=== PATIENT | female | born 1980 | race Caucasian/White ===

== ENCOUNTER 2018-06-28 09:18 | Day surgery (SDC) | payer MEDICAID, SELFPAY ==
[2018-06-28 09:44] VITALS: PULSE 75; RESP 16; TEMP 36.3; O2SAT 99
--- NOTE | 2018-06-28 09:55 | HPE_ITS ---
Assessment and Plan (1) Right carpal tunnel syndrome: Current visit: Yes Status: Acute Plan: Educated patient on surgery covering surgical technique, recovery process, benefits and risks including but not limited to risk of infection, blood clot, damage to soft tissue/blood vessels/nerves in detail. After discussion patient gives verbal understanding of risks and elects to proceed with scheduling surgery. Patient had opportunity to have questions answered to her satisfaction. Patient will continue to be scheduled for right ECTR with Dr. Angel on 06/28/18. History of Present Illness Narrative: Ms. Echols is a 37-year-old right-hand dominant female who presents to clinic for pre-operative visit for right ECTR with Dr. Angel on 06/28/18. 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 Since she was seen in the office she has begun wearing the braces every night and for the majority of her activity especially driving. She began having additional symptoms with her third approximately 3 years when she developed bilateral hand discomfort with occasional numbness. Her symptoms improved following delivery. However, over the last 4 months she has had aggravated symptoms of bilateral finger numbness, tingling in all fingers but predominantly in her thumb, middle and ring fingers bilaterally. She also describes an occasional aching pain in her thumbs bilaterally. Patient reports she wears braces on a nightly basis but has continued to have numbness that wakes her up in the middle of night. Due to symptoms of numbness, tingling and aching discomfort patient has had difficulty opening jars, completing school work on her phone and occasionally drops objects. She describes feeling weak in her hands bilaterally. She reports her thumbs are constantly numb but her other fingers are aggravated with holding her ski poles, driving and at night. Pertinent Surgical Information Denies past medical history of: stroke, cardiac issues, angina, asthma, COPD, sleep apnea, renal issues, liver issues, hepatitis, gastrointestinal issues, ulcers, hyperlipidemia, bleeding disorders, seizures, migraines, diabetes, autoimmune disorders, thyroid issues Denies prior complications from surgery or anesthesia. Review of Systems Constitutional Denies fever(s), Denies frequent falls and Denies headache(s) Eyes Denies change in vision ENT Denies dizziness, Denies ear discharge, Denies headache(s), Denies epistaxis, Denies nasal discharge and Denies sore throat Cardiovascular Denies chest pain, Denies rapid heart rate, Denies irregular heart rhythm, Denies dyspnea, Denies dyspnea on exertion and Denies slow heart rate Respiratory Denies cough, Denies dyspnea, Denies dyspnea on exertion and Denies wheezing Gastrointestinal Denies abdominal pain, Denies melena, Denies hematochezia, Denies constipation, Denies diarrhea, Denies nausea and Denies vomiting Genitourinary Denies hematuria, Denies dysuria and Denies urinary urgency Musculoskeletal Reports as per HPI, Reports numbness and Reports tingling Neurologic Denies dizziness, Denies frequent falls, Denies headache(s), Reports numbness and Reports tingling Allergic/Immunologic Denies wheezing PFSH Medical History Attention deficit disorder (ADD) in adult (Chronic) Borderline hypertension (Chronic) Raynaud disease (Chronic) BMI 45.0-49.9, adult Right carpal tunnel syndrome (Chronic) Anxiety (Chronic) Depression (Chronic) Surgical History S/P foot surgery, right (Chronic) Tonsillectomy and adenoidectomy Pilonidal cyst (Chronic) Family History Mother Essential hypertension Hyperlipidemia Mental disorder Father Alcohol abuse Essential hypertension Heart disease Hyperlipidemia Myocardial infarction Stroke Brother Essential hypertension Brother Essential hypertension Social History Smoking/Tobacco Use Status: Former Tobacco Use Quit Date: 03/02/05 Alcohol Intake: current Alcohol Intake frequency: holidays/special occasions only Drug use: Never Details: alcohol: t-14 Do you feel safe at home: Yes Do you feel safe in your relationship?: Yes Meds Home Medications Medication Instructions Recorded Confirmed Type venlafaxine [Effexor XR] 75 mg PO DAILY #1 12/22/14 04/08/18 History norethindrone (contraceptive) 1 tab-cap PO DAILY #3 tab-cap 09/13/15 04/08/18 History [Nor-Q-D] cephalexin 500 mg PO QID #20 capsule 03/30/17 Rx lisdexamfetamine [Vyvanse] 30 mg PO BID 06/28/18 06/28/18 History nifedipine 30 mg PO DAILY 06/28/18 06/28/18 History Allergies Allergy/AdvReac Type Severity Reaction Status Date / Time No Known Allergies Allergy Unverified 06/28/18 09:33 Exam Const General: cooperative and no acute distress HENMT Head: normal to inspection and atraumatic Ears: external ears normal General nose exam: external nose normal and no nasal discharge Face and sinus: face symmetric Mouth: oral mucosae normal, lip normal, tongue normal and moist mucous membranes Teeth and gingiva: dentition normal Throat: posterior oropharynx normal Eyes General: appearance normal, both eyes and all related structures Neck Neck: trachea midline Resp Effort & Inspection: normal respiratory effort and able to speak in complete sentences Auscultation: clear to auscultation bilaterally, no rales, no rhonchi and no wheezes Cardio Heart Sounds: S1 normal, S2 normal and no murmurs Pulses: radial pulses present bilaterally Skin General skin exam: no rashes or lesions noted
[2018-06-28 10:00] VITALS: BP 120/87; PULSE 75; RESP 16; TEMP 36.3; O2SAT 99
[2018-06-28] MEDS: Lactated Ringers 1,000 ML 80 ML IV (10:15)
[2018-06-28] MEDS: ceFAZolin 2 GM/50 ML BAG IVPB (11:25)
--- NOTE | 2018-06-28 11:57 | PDOC.DSDIS_ITS ---
Discharge Plan Disposition Patient Disposition: HOME Condition: Good Discharge Details Reason For Visit: (R) ECTR Attending Provider: Derek Angel Primary Care Provider: Estephania Guzman Home Meds and New Rx's Prescriptions: New hydrocodone-acetaminophen 5-325 mg tablet 1 tab PO Q6H PRN (Reason: pain) Qty: 7 RF: 0 Continued venlafaxine [Effexor XR] 75 MG capsule,extended release 24hr 75 mg PO DAILY Qty: 1 RF: 0 norethindrone (contraceptive) [Nor-Q-D] 0.35 MG tablet 1 tab-cap PO DAILY Qty: 3 RF: 3 cephalexin 500 MG capsule 500 mg PO QID Qty: 20 RF: 0 Vyvanse 30 mg Capsule 30 mg PO BID RF: 0 nifedipine 30 mg Tablet Extended Release 30 mg PO DAILY RF: 0 Discharge Instructions Additional Instructions: Elevate R hand above heart level as much as possible overnite tonite. Wiggle fingers R hand 10 times/hour when awake to prevent swelling. Keep splint and dressings dry and in place for 48 hours. Remove splint and dressings after 48 hours and begin to move R wrist. Use R hand as much as your discomfort allows. After removing dressings, may shower or bathe and get incision wet. Leave incision uncovered when it is dry and sealed. Follow up with in 2 weeks. Take tylenol or ibuprofen for mild pain. Use hydrocodone for breakthru pain, if needed. Your fingers may stay numb for 24 hours due to nerve block I put in to decrease post-op pain. Referrals: Derek Angel MD [ [facility] STAFF PHYSICIAN] - (f/u in 2 weeks.) Equipment/Supplies: Splint Activity:: Activity as Tolerated Remove Dressings/Wound Care:: 48 hours Shower/Bathe:: 48 hours Diet:: As Tolerated Discharge Orders Discharge Orders: Discharge Order (Routine); Ordered 06/28/18 Ordered By: Derek Angel DS: Diagnosis Discharge Diagnosis (1) Right carpal tunnel syndrome: Status: Chronic (2) Bilateral carpal tunnel syndrome: Status: Acute
[2018-06-28 12:30] VITALS: BP 140/86; PULSE 71; RESP 16; TEMP 35.5; O2SAT 100
--- NOTE | 2018-06-28 16:07 | ROE_ITS ---
DATE OF PROCEDURE: June 28, 2018 PREOPERATIVE DIAGNOSIS: Carpal tunnel syndrome, right. POSTOPERATIVE DIAGNOSIS: Same. PROCEDURE: Endoscopic carpal tunnel release on the right. ANESTHESIA: IV regional. SURGEON: Derek Angel M.D. INDICATIONS: This is a 37-year-old white female with, she reports, a 20-year history of some bilater al wrist discomfort, aggravated by certain activities. Over approximately 3 years ago she developed bilateral hand discomfort with occasional numbness during her . Her symptoms improved follo wing delivery until 4 months ago. Over the last 4 months she's had bilateral finger numbness, mostly in the thumb, middle and ring fingers bilaterally. Both sides are equally severe, but she is right- handed so it affects her more. Despite wearing night splints her symptoms have continued and she is awakened in the middle of the night periodically. She has difficulty opening jars, completing school work, on her phone and drops objects. Clinical exam was classic for carpal tunnel syndrome tracieatera lly. Bilateral carpal tunnel releases have been recommended. The patient wished to have them done one at a time, starting with the right side. The risks and complications of the procedure have been explained to the patient in detail preoperatively. PROCEDURE: The patient was taken to the Operating Room on 06/28/18. She was placed supine on the ope rating table and an IV regional anesthetic was administered to the right upper extremity. Once good anesthesia was obtained, the right hand, wrist and forearm were prepped and draped free in the usual sterile fashion. An incision was made in line with the proximal flexion crease of the wrist, beginning at the flexor c arpi radialis tendon and extending to the flexor carpi ulnaris tendon. The incision was carried down to the fascia. Subcutaneous veins were cauterized. The palmaris longus was retracted radially and then a distally-based fascial flap was developed to gain access to the carpal canal. A synovial refl lor was then used to free up any soft tissue attachments to the undersurface of the volar carpal li gament. A series of obturators were inserted to make room for the endoscope. The Jyotsna endoscope osiel de device was then inserted into the carpal canal. It was inserted until the distal edge of the vola r carpal ligament was clearly seen. At this point the trigger was depressed, elevating the blade, an d the elevated blade was brought out from distal to proximal out through the incision. The blade was lowered; the endoscope was then placed back in the carpal canal. I could see that the volar carpal ligament was completely transected and the median nerve was falling into the defect caused by the tra nsection. The endoscope was then removed from the carpal canal. Using Littler scissors a fasciotomy was performed subcutaneously for about two inches proximal to the incision. The wound was irrigated with saline solution. The wound margins were infiltrated with 0.5% Marcaine with an epinephrine indio ution and the skin edges were approximated with two horizontal mattress sutures of #4-0 Nylon suture material. The wound was dressed with Xeroform gauze, sterile gauze 4x4's, wrapped with a Kerlix band age, followed by an Davion bandage. She was placed in a commercial cockup wrist splint. The patient's IV regional anesthesia was reversed without complication and she was discharged to the recovery room in good condition. The patient was discharged home from the Day Surgery Unit when fully recovered from her IV regional a nesthesia. She was given instructions to elevate her right hand above heart level as much as possibl e overnight tonight. She is encouraged to wiggle her fingers ten times an hour when awake to prevent swelling and pain. She is to keep the dressings and splint intact and dry for 48 hours. After 48 h ours she can remove her dressings, shower or bathe and get her incision wet. She can leave the incis ion uncovered when it is dry and sealed. She is encouraged to use her right hand as much as discomfo rt allows. She is advised that her fingers may stay numb for up to 24 hours due to the nerve block I put in to decrease postop pain. She should follow-up in my office in 2 weeks. She will take Tyleno l or ibuprofen for mild pain. She is given a prescription for Hydrocodone with APAP 5/325 one tablet every six hours, if needed, for breakthrough pain.
== END 2018-06-28 13:05 | disposition home or self-care (01) ==
PROVIDERS: PCP Physician Assistant Medical; Visit Provider Orthopaedic Surgery
PROC: 01N54ZZ Release Median Nerve, Percutaneous Endoscopic Approach (ICD-10-PCS; CPT 29848; principal; 2018-06-28 10:00)
DX: G56.01 Carpal tunnel syndrome, right upper limb (principal)
CPT/HCPCS: 29848; NC; J0690; J2250; L3908

== ENCOUNTER 2019-02-04 10:04 | Emergency (ER) | payer MEDICAID, SELFPAY ==
[2019-02-04 10:21] VITALS: BP 150/97; PULSE 90; RESP 18; TEMP 37; O2SAT 98
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
[2019-02-04 11:27] VITALS: RESP 16
== END 2019-02-04 11:30 | disposition home or self-care (01) ==
PROVIDERS: Emergency Provider Physician Assistant; PCP Physician Assistant Medical
DX: F41.9 Anxiety disorder, unspecified (principal); Z63.79 Other stressful life events affecting family and household; I10 Essential (primary) hypertension
CPT/HCPCS: 99283

== ENCOUNTER 2019-06-07 13:21 | Outpatient (REF) | payer MEDICAID, SELFPAY ==
[2019-06-07 19:13] LABS: Anion Gap 12.4 mmol/L (3-11); BUN 17 mg/dL (7-18); CO2 23.6 mmol/L (21.0-32.0); CREATININE 0.66 mg/dL (0.55-1.02); Chloride 101 mmol/L (98-107); Glucose 103 mg/dL (74-106); Potassium 4.6 mmol/L (3.5-5.1); Sodium 137 mmol/L (136-145)
[2019-06-07 19:20] LABS: Hemoglobin A1C 5.5 % (3.8-5.6)
== END 2019-06-07 13:41 ==
LOC: NCHCN 13:21
PROVIDERS: PCP Physician Assistant Medical; Visit Provider Physician Assistant Medical
DX: I73.00 Raynaud's syndrome without gangrene (principal); R03.0 Elevated blood-pressure reading, without diagnosis of hypertension; Z86.32 Personal history of gestational diabetes
CPT/HCPCS: 80048; 83036

== ENCOUNTER 2020-10-01 01:19 | Outpatient (CLI) | payer MEDICAID, SELFPAY ==
--- NOTE | 2020-10-01 16:22 | DI.MAMMO_ITS ---
Exam(s) MAMMO SCREENING EXAM: MAMMO SCREENING CLINICAL HISTORY: SCREENING, BASELINE, HEALTH MAINTENANCE EXAM,Z00.8. TECHNIQUE: Bilateral full field digital CC and MLO mammographic images were obtained with 3D tomosyn thesis and utilizing computer aided detection (CAD). COMPARISON: None. This is a baseline mammogram on this 40-year-old patient who has a significant fa thea history, including her father was apparently diagnosed with breast cancer at age 64. FINDINGS: Towards the lateral aspect of the right breast there is benign-appearing small nodule which has appea jana of a benign intramammary lymph node, best seen on the CC view. There are no spiculated masses nor malignant appearing microcalcification groups. There is no significant architectural distortion nor skin thickening-retraction. IMPRESSION: Benign findings. No radiographic evidence of malignancy BI-RADS Category 2 - Benign Findings Breast Density - Category B - Scattered areas of fibroglandular density Breast density Category C or D implies that the patient has dense breast tissue. Dense breast tissue can make it harder to find cancer on a mammogram. Dense breast tissue is also associated with an incr eased risk of breast cancer. This information about the result of the mammogram report was provided to the patient to raise their awareness. Use this report when you speak with the patient about their risks for breast cancer, which includes their family history. At that time, you may recommend additional screening tests (Ultrasoun d or MRI) as these tests may add significant information. A negative radiographic report should not delay biopsy if a dominant or clinically suspicious mass is present. Up to ten percent of cancers are not identified on mammography. A negative report may reinforce clinical impression. Adenosis and dense breasts may obscure an underlying neoplasm. False positive reports average 6 to 10%. Patient will receive a letter notifying them of these results.
== END 2020-10-01 01:39 ==
PROVIDERS: PCP Physician Assistant Medical; Visit Provider Physician Assistant Medical
DX: Z12.31 Encounter for screening mammogram for malignant neoplasm of breast (principal); Z80.3 Family history of malignant neoplasm of breast
CPT/HCPCS: 77063; 77067

== ENCOUNTER 2020-11-13 14:53 | Outpatient (REF) | payer MEDICAID, SELFPAY ==
--- NOTE | 2020-11-13 12:15 | PAPFT_PTH ---
PATIENT: Yadira Echols LOC: [facility]#:[id number] AGE/SX: 40/F ROOM: RE11/13/[address]: Estephania Guzman : 1980 BED: DIS: 11/13/2020 SPEC #: [id number] RECD: 11/14/20 12:54 STATUS: DAVI RERyan #: [id number] KEYUR: 11/13/20 12:[address]: Estephania Guzman DEPT: [facility] Cytology RECD BY: Xi Felipe Tissues: 1 - CX/ENDOCX FOR PAP SMEARS Procedures: PAP THIN PREP/UVM Screening HPV DNA PROBE Comments: [id number]
[2020-11-13 19:35] LABS: ALT 23 U/L (14-59); AST 14 U/L (15-37); Albumin 3.7 g/dL (3.4-5.0); Alkaline Phosphatase 83 U/L (46-116); Anion Gap 10.9 mmol/L (3-11); BUN 17 mg/dL (7-18); Bilirubin, Total 0.3 mg/dL (0.2-1.0); CO2 24.1 mmol/L (21.0-32.0); CREATININE 0.7 mg/dL (0.55-1.02); Calcium 8.9 mg/dL (8.5-10.1); Calculated LDL 153 mg/dL (<100); Chloride 105 mmol/L (98-107); Cholesterol 252 mg/dL (<200); Glucose 90 mg/dL (74-106); HDL Cholesterol 70 mg/dL (40-60); Potassium 4.5 mmol/L (3.5-5.1); Sodium 140 mmol/L (136-145); Total Protein 7.2 g/dL (6.4-8.2); Triglyceride 149 mg/dL (<150)
== END 2020-11-13 14:54 | disposition home or self-care (01) ==
LOC: NCHCN 14:53
PROVIDERS: PCP Physician Assistant Medical; Referring Provider Physician Assistant Medical; Visit Provider Physician Assistant Medical
DX: Z12.4 Encounter for screening for malignant neoplasm of cervix (principal); Z01.419 Encounter for gynecological examination (general) (routine) without abnormal findings; Z00.8 Encounter for other general examination; Z11.51 Encounter for screening for human papillomavirus (HPV)
CPT/HCPCS: 80053; 80061; 88142; 87624

== ENCOUNTER 2022-06-03 16:07 | Outpatient (REF) | payer MEDICAID, SELFPAY ==
[2022-06-03 17:54] LABS: ALT 26 U/L (14-59); AST 14 U/L (15-37); Albumin 3.9 g/dL (3.4-5.0); Alkaline Phosphatase 85 U/L (46-116); Anion Gap 10.2 mmol/L (3-11); BUN 23 mg/dL (7-18); Bilirubin, Total 0.3 mg/dL (0.2-1.0); CO2 26.8 mmol/L (21.0-32.0); CREATININE 0.7 mg/dL (0.55-1.02); Calculated LDL 132 mg/dL (<100); Chloride 107 mmol/L (98-107); Cholesterol 208 mg/dL (<200); Estimated GFR 111.36 (mL/min/1.73m2); Glucose 104 mg/dL (74-106); HDL Cholesterol 67 mg/dL (40-60); Potassium 4.7 mmol/L (3.5-5.1); Sodium 144 mmol/L (136-145); Total Protein 7.5 g/dL (6.4-8.2); Triglyceride 49 mg/dL (<150)
== END 2022-06-03 16:08 | disposition home or self-care (01) ==
LOC: NCHCN 16:07
PROVIDERS: PCP Physician Assistant Medical; Visit Provider Physician Assistant Medical
DX: R03.0 Elevated blood-pressure reading, without diagnosis of hypertension (principal); R79.89 Other specified abnormal findings of blood chemistry; I73.00 Raynaud's syndrome without gangrene
CPT/HCPCS: 80053; 80061

== ENCOUNTER 2022-11-10 22:22 | Emergency (ER) | payer MEDICAID, SELFPAY ==
[2022-11-10 22:29] VITALS: BP 146/91; PULSE 87; RESP 18; TEMP 37.2; O2SAT 98
[2022-11-10] MEDS: Clindamycin 150 MG CAP, 12 CAPS/BTL 450 MG PO (22:52)
--- NOTE | 2022-11-10 22:54 | ED.GENADUL_ITS ---
Discharge Plan Disposition Patient Disposition: Home Discharge Details Clinical Impression: Pain, dental Primary Care Provider: Estephania Guzman ED Provider: Xi Graff Home Meds and New Rx's Prescriptions: New clindamycin HCl 150 mg capsule 450 mg PO TID Qty: 81 0RF Continued venlafaxine [Effexor XR] 75 MG capsule,extended release 24hr 75 mg PO DAILY Qty: 1 Mirena 20 mcg/24 hours (7 yrs) 52 mg intrauterine device 1 insert intrauterine ONCE Rx Instructions: as a single dose lisdexamfetamine 20 mg capsule 20 mg PO DAILY NAC 600 mg tablet 600 mg PO BID Patient Comments: STATES SHE ONLY TAKES THIS DAILY BECAUSE SHE FORGETS SECOND DOSE lorazepam [Ativan] 0.5 mg tablet 0.5 mg PO DAILY PRN Vyvanse 30 mg Capsule 30 mg PO BID nifedipine 30 mg Tablet Extended Release 30 mg PO DAILY Discharge Instructions Instructions: Toothache (ED) Additional Instructions: Take antibiotics as prescribed Yogurt daily while on antibiotic Ibuprofen and Tylenol as needed for pain Please review list of dentists Referrals: Estephania Guzman PA [Primary Care Provider] - Discharge Data Discharge Date/Time-TO BE ENTERED AT DEPARTURE: 11/10/22 22:59 Medical Decision Making This 42-year-old female presents with report of dental pain, fracture noted to#32, dycal applied to fx for comfort no evidence of ludwigs or deep space infection, oropharynx patent return precautions reviewed and pt expressed understanding placed on clindamycin HPI General Date/Time Provider Initiated Documentation: 11/10/22 22:24 . HPI Narrative: This 42-year-old female presents with right lower dental pain for the past nadir ral days. States that she had a cavity that failed to. States the pain is gradually becoming worse, unable to get into her dentist secondary Medicaid status. Denies any fever or chills. Denies any drainage. Denies any chance of . Related Data Home Medications Medication Instructions Recorded Confirmed venlafaxine 75 mg capsule,extended 75 mg PO DAILY ##1 12/22/14 08/20/21 release 24 hr (Effexor XR) lisdexamfetamine 30 mg capsule 30 mg PO BID 06/28/18 08/20/21 (Vyvanse) nifedipine 30 mg tablet,extended 30 mg PO DAILY 06/28/18 08/20/21 release levonorgestrel 21 mcg/24 hours (8 1 insert intrauterine ONCE 05/08/21 08/20/21 yrs) 52 mg intrauterine device (Mirena) lisdexamfetamine 20 mg capsule 20 mg PO DAILY 05/08/21 08/20/21 acetylcysteine 600 mg tablet (NAC) 600 mg PO BID 07/30/21 08/20/21 lorazepam 0.5 mg tablet (Ativan) 0.5 mg PO DAILY PRN 08/27/21 clindamycin HCl 150 mg capsule 450 mg PO TID #81 caps 11/10/22 Previous Rx's Medication Instructions Recorded clindamycin HCl 150 mg capsule 450 mg PO TID #81 caps 11/10/22 Allergies Allergy/AdvReac Type Severity Reaction Status Date / Time No Known Allergies Allergy Unverified 08/19/21 14:06 General Stated Complaint: DentalOral ANGELLA: 4 PFSH All Active Problems Lipoma (Acute) Tobacco use (Acute) Medical History (Updated 11/11/22 @ 00:07 by STEVE MAGAÑA) Anxiety Reports well controlled on venlafaxine Attention deficit disorder (ADD) in adult Bilateral carpal tunnel syndrome Binge eating disorder Borderline hypertension Chronic hypertension during , antepartum (06/01/15) Depression Reports well controlled on venlafaxine Dysuria Encounter for IUD insertion Encounter for supervision of normal in multigravida (12/27/14) Family history of breast cancer Gestational diabetes mellitus (GDM) treated with oral hypoglycemic therapy (06/26/15) 06/08/15 Glucophage 500mg @ bedtime 06/19/15 Glucophage increased to 1000mg @ bedtime 06/26/15 Glucophage increased to 1500mg at bedtime. 07/06/15 Glucophage increased to 2000mg at bedtime. Hypertension Left carpal tunnel syndrome Numbness and tingling in both hands (06/22/15) Obesity affecting in third trimester (06/01/15) BMI 46. PTSD (post-traumatic stress disorder) Raynaud disease Right carpal tunnel syndrome Surgical History (Updated 05/08/21 @ 10:55 by Richar Perez RN) History of carpal tunnel surgery of right wrist Pilonidal cyst S/P foot surgery, right skin removal Tonsillectomy and adenoidectomy Family History (Updated 11/21/20 @ 09:21 by Fabiana Panda MD) Mother Essential hypertension 30 Hyperlipidemia Mental disorder Father Alcohol abuse Essential hypertension 30 Heart disease Hyperlipidemia 33 Myocardial infarction Stroke Breast cancer Brother Essential hypertension 30 Brother Essential hypertension 30 Paternal Grandmother Breast cancer Social History (Updated 11/21/20 @ 09:24 by Fabiana Panda MD) Smoking/Tobacco Use Status: Former Tobacco Use Quit Date: 03/02/05 Smoking risk assessment performed?: Yes Alcohol Intake: current Alcohol Intake frequency: holidays/special occasions only Drug use: Occasionally Substance use type: marijuana Household members: significant other and children Number of Children: 3 Pets and animals: Yes Pets and animals: cat(s) and dog(s) Sexually active: Yes What type of physical activity do you participate in: walking Special yulisa needs: No Do you feel safe at home: Yes Do you feel safe in your relationship?: Yes Victim of physical abuse: No Victim of emotional abuse: No Victim of sexual abuse: No Female Reproductive History Menstrual Age of Menarche: 16 control method: progestin IUCD History History 3 Para 3 Hx # Term Pregnancies 2 Multiple births Hx # Pregnancies 1 Ectopic pregnancies AB induced Hx Number of Living Children 3 AB spontaneous Past Pregnancies Del. Date GA/Weeks # Preg Succ Route Wgt Sex Labor Lgth Anesth esia Location [facility] 08/01/06 vaginal 2267.962 g Male [facility] 12/15/09 vaginal 2267.962 g Male [facility] 07/20/15 vaginal 3855.535 g Female [facility] Course Vital Signs Vital signs: Vital Signs Temperature 37.2 C 11/10/22 22:29 Pulse 87 11/10/22 22:29 Respiratory Rate 18 11/10/22 22:29 Blood Pressure 146/91 H 11/10/22 22:29 Pulse Oximetry 98 11/10/22 22:29 Temperature 37.2 C 11/10/22 22:29 Temperature Source Oral 11/10/22 22:29 Pulse 87 11/10/22 22:29 Respiratory Rate 18 11/10/22 22:29 Respiratory Effort Normal 11/10/22 22:32 Blood Pressure 146/91 H 11/10/22 22:29 Blood Pressure Position Sitting 11/10/22 22:29 Pulse Oximetry 98 11/10/22 22:29 Oxygen Delivery Method Room Air 11/10/22 22:29 Oxygen Flow Rate 0 11/10/22 22:29 Pain Level 2 11/10/22 22:29
== END 2022-11-10 22:59 | disposition home or self-care (01) ==
LOC: ER 11-11 02:10
PROVIDERS: Emergency Provider Physician Assistant; PCP Physician Assistant Medical
DX: K08.89 Other specified disorders of teeth and supporting structures (principal)
CPT/HCPCS: 99283; 99284

== ENCOUNTER 2023-09-25 08:29 | Emergency (ER) | payer MEDICAID, SELFPAY ==
[2023-09-25 08:30] VITALS: BP 173/109; PULSE 99; RESP 17; TEMP 36.7; O2SAT 100
[2023-09-25 08:36] VITALS: BP 173/109; PULSE 99; RESP 17; TEMP 36.7; O2SAT 100
--- NOTE | 2023-09-25 08:47 | ED.GENADUL_ITS ---
Discharge Plan Disposition Patient Disposition: Home Discharge Details Clinical Impression: Abscess, dental, Elevated blood pressure reading Primary Care Provider: Estephania Guzman ED Provider: Ernst Polo Home Meds and New Rx's Prescriptions: New amoxicillin-pot clavulanate 875-125 mg tablet 1 tab PO Q12H 7 Days Qty: 14 0RF Continued venlafaxine [Effexor XR] 75 MG capsule,extended release 24hr 75 mg PO DAILY Qty: 1 Mirena 20 mcg/24 hours (7 yrs) 52 mg intrauterine device 1 insert intrauterine ONCE Rx Instructions: as a single dose lisdexamfetamine 20 mg capsule 20 mg PO DAILY NAC 600 mg tablet 600 mg PO BID Patient Comments: STATES SHE ONLY TAKES THIS DAILY BECAUSE SHE FORGETS SECOND DOSE lorazepam [Ativan] 0.5 mg tablet 0.5 mg PO DAILY PRN lisdexamfetamine [Vyvanse] 30 mg Capsule 30 mg PO BID nifedipine 30 mg Tablet Extended Release 30 mg PO DAILY Discharge Instructions Instructions: Dental Pain ED, High Blood Pressure ED, Tooth Abscess ED Additional Instructions: Please take antibiotics as prescribed and complete the full course of medication. Is very important that you follow-up with a dentist for definitive care of your tooth infection. For pain control please continue to take the Tylenol and ibuprofen It was also noted today that your blood pressure was elevated. Please follow-up with your primary care provider for recheck of your blood pressure and any adjustments to medications or new medications if needed. Referrals: [facility] [Provider Group] - 1 week Estephania Guzman PA [Primary Care Provider] - (As needed for repeat check of blood pressure) [facility] General Mode of arrival: ambulatory . Date/Time Provider Initiated Documentation: 09/25/23 08:31 . Limitations to Documentation: no limitations . Information obtained by: patient . History of Present Illness 43 year old F presents to the emergency department with the chief complaint of Dental pain/facial swelling, described as severe, Quality is described as sharp, and is localized to the mouth. Patient started experiencing this day(s) (2) and it has been constant. No relieving factors improve symptom(s), Patient notes no other symptoms.. Patient did receive the following treatments prior to arrival, NSAID Related Data Home Medications ?Medication ?Instructions ?Recorded ?Confirmed venlafaxine 75 mg capsule,extended 75 mg PO DAILY ##1 12/22/14 09/25/23 release 24 hr (Effexor XR) lisdexamfetamine 30 mg capsule 30 mg PO BID 06/28/18 09/25/23 (Vyvanse) nifedipine 30 mg tablet,extended 30 mg PO DAILY 06/28/18 09/25/23 release levonorgestrel 21 mcg/24 hr (up to 1 insert intrauterine ONCE 05/08/21 09/25/23 8 years) 52 mg intrauterine device (Mirena) lisdexamfetamine 20 mg capsule 20 mg PO DAILY 05/08/21 09/25/23 acetylcysteine 600 mg tablet (NAC) 600 mg PO BID 07/30/21 09/25/23 lorazepam 0.5 mg tablet (Ativan) 0.5 mg PO DAILY PRN 08/27/21 09/25/23 amoxicillin 875 mg-potassium 1 tab PO Q12H 7 days #14 tabs 09/25/23 clavulanate 125 mg tablet Previous Rx's ?Medication ?Instructions ?Recorded amoxicillin 875 mg-potassium 1 tab PO Q12H 7 days #14 tabs 09/25/23 clavulanate 125 mg tablet Allergies Allergy/AdvReac Type Severity Reaction Status Date / Time clindamycin AdvReac Severe Itching Verified 09/25/23 08:37 General Stated Complaint: DentalOral ANGELLA: 4 Review of Systems Constitutional Constitutional: Denies chills and Denies fever(s) ENT Ears, Nose, Mouth, and Throat: Reports as per HPI, Denies change in voice, Reports dental pain, Denies throat swelling and Denies tongue swelling Respiratory Respiratory: Denies stridor and Denies wheezing Integumentary/Breasts Skin/Breast: Denies rash Allergic/Immunologic Allergic/Immunologic: Denies throat swelling, Denies tongue swelling and Denies wheezing Exam Const General: cooperative Orientation: alert, awake and oriented x3 Limitations: mental status not altered [facility] Head: normal to inspection, normocephalic and atraumatic Ears: hearing grossly normal bilaterally, normal mastoids bilaterally and no periauricular adenopathy General nose exam: external nose normal Face and sinus: tenderness on the right mandible Face images: 2 1. Area of facial swelling Mouth: oropharynx normal, no drooling, no muffled voice and normal tongue Teeth and gingiva: caries and other (Partially fractured tooth #31) Throat: posterior oropharynx normal, tonsils normal and uvula midline Eyes General: appearance normal, both eyes and all related structures Pupils: PERRL Neck Neck: normal visual inspection, full ROM, no lymphadenopathy, no meningeal signs, trachea midline, supple, no anterior neck swelling and no midline deformity Resp Effort & Inspection: normal respiratory effort and able to speak in complete sentences Course Vital Signs Vital signs: Vital Signs Temperature 36.7 C 09/25/23 08:30 Pulse 99 H 09/25/23 08:30 Respiratory Rate 17 09/25/23 08:30 Blood Pressure 173/109 H 09/25/23 08:30 Pulse Oximetry 100 09/25/23 08:30 Temperature 36.7 C 09/25/23 08:36 Temperature Source Temporal Artery Scan 09/25/23 08:36 Pulse 99 H 09/25/23 08:36 Respiratory Rate 17 09/25/23 08:36 Respiratory Effort Normal 09/25/23 08:35 Blood Pressure 173/109 H 09/25/23 08:36 Blood Pressure Position Sitting 09/25/23 08:36 Pulse Oximetry 100 09/25/23 08:36 Oxygen Delivery Method Room Air 09/25/23 08:36 Oxygen Flow Rate 0 09/25/23 08:36 Pain Level 8 09/25/23 08:40 Medical Decision Making Exam consistent with early dental abscess. no signs of deep neck space infection ( Retropharyngeal abscess, Navneet's angina, Parapharyngeal space infection, Peritonsillar Abscess ([employer])) or Epiglottitis. Pt non toxic and stable. No fluctuant palpable abscess noted so do not feel that I&D would be beneficial at this time but will start patient on Augmentin and encourage patient to follow-up with local dental provider preferably within the next 7 days. After discussion of diagnosis and plan of care patient has no further needs, questions, or concerns and states clear understanding to return to the emergency department for any worsening symptoms. This documentation was generated using [email or web address] system, please disregard any oddities of phrase or misspellings. Quality:SDOH Health Related Social Needs: 2 No Data to Display PFSH All Active Problems Elevated blood pressure reading (Acute) Abscess, dental (Acute) Lipoma (Acute) Tobacco use (Acute) Medical History (Updated 09/25/23 @ 08:48 by Ernst Polo NP) Hypertension Binge eating disorder Family history of breast cancer Dysuria Left carpal tunnel syndrome PTSD (post-traumatic stress disorder) Encounter for IUD insertion Anxiety Reports well controlled on venlafaxine Depression Reports well controlled on venlafaxine Attention deficit disorder (ADD) in adult Borderline hypertension Raynaud disease Right carpal tunnel syndrome Bilateral carpal tunnel syndrome Chronic hypertension during , antepartum (06/01/15) Encounter for supervision of normal in multigravida (12/27/14) Gestational diabetes mellitus (GDM) treated with oral hypoglycemic therapy (06/26/15) 06/08/15 Glucophage 500mg @ bedtime 06/19/15 Glucophage increased to 1000mg @ bedtime 06/26/15 Glucophage increased to 1500mg at bedtime. 07/06/15 Glucophage increased to 2000mg at bedtime. Numbness and tingling in both hands (06/22/15) Obesity affecting in third trimester (06/01/15) BMI 46. Surgical History (Updated 05/08/21 @ 10:55 by Richar Perez RN) History of carpal tunnel surgery of right wrist S/P foot surgery, right skin removal Pilonidal cyst Tonsillectomy and adenoidectomy Family History (Updated 11/21/20 @ 09:21 by Fabiana Panda MD) Mother Essential hypertension 30 Hyperlipidemia Mental disorder Father Alcohol abuse Essential hypertension 30 Heart disease Hyperlipidemia 33 Myocardial infarction Stroke Breast cancer Brother Essential hypertension 30 Brother Essential hypertension 30 Paternal Grandmother Breast cancer Social History (Updated 11/21/20 @ 09:24 by Fabiana Panda MD) Smoking/Tobacco Use Status: Former Tobacco Use Quit Date: 03/02/05 Smoking risk assessment performed?: Yes Alcohol Intake: current Alcohol Intake frequency: holidays/special occasions only Drug use: Occasionally Substance use type: marijuana Household members: significant other and children Number of Children: 3 Pets and animals: Yes Pets and animals: cat(s) and dog(s) Sexually active: Yes What type of physical activity do you participate in: walking Special yulisa needs: No Do you feel safe at home: Yes Do you feel safe in your relationship?: Yes Victim of physical abuse: No Victim of emotional abuse: No Victim of sexual abuse: No Female Reproductive History Menstrual Age of Menarche: 16 control method: progestin IUCD History History 2 3 Para 3 Hx # Term Pregnancies 2 Multiple births Hx # Pregnancies 1 Ectopic pregnancies AB induced Hx Number of Living Children 3 AB spontaneous Past Pregnancies Del. Date GA/Weeks # Preg Succ Route Wgt Sex Labor Lgth Anesth esia Location Prov Complic 08/01/06 vaginal 2267.962 g Male [facility] 12/15/09 vaginal 2267.962 g Male [facility] 07/20/15 vaginal 3855.535 g Female [facility]
== END 2023-09-25 08:58 | disposition home or self-care (01) ==
LOC: ER 08:59
PROVIDERS: Emergency Provider Nurse Practitioner Family; PCP Physician Assistant Medical
DX: R68.84 Jaw pain (principal); K04.7 Periapical abscess without sinus; R03.0 Elevated blood-pressure reading, without diagnosis of hypertension
CPT/HCPCS: 99283

== ENCOUNTER 2023-09-27 15:16 | Emergency (ER) | payer MEDICAID, SELFPAY ==
[2023-09-27] VITALS (15 sets, daily range): BP systolic 113–158; BP diastolic 71–92; PULSE 66–90; RESP 12–20; TEMP 36.9; O2SAT 95–100
--- OUTSIDE RECORDS SUMMARY | 2023-09-27 15:24 | XMS_ITS | Encounter Summary ---
Author Organization [facility] [place] [address] Care Team Providers Care Salt Lifter Name Role Phone Unavailable Primary Care Provider Unavailabl e Encounter Details Date Type Department Care Team (Late st Contact Info) Description 06/26/2015 Orders Only Obstetrics [place] [address] Jackie Finley MD [facility] [address] [place] [address] Gestational diabetes mellitus (GDM) affecting , antepartum Social History Tobacco Use Types Packs/Day Years Used Date Smoking Tobacco: Former Cigarettes Q uit: 04/26/2005 Comments Yes Sex and Gender Information Value Date Recorded Sex Assigned at Not on file Gender Identity Not on file Sexual Orientation Not on file documented as of this encounter Plan of Treatment Not on file documented as of this encounter Visit Diagnoses Diagnosis Gestational diabetes mellitus (GDM) affecting , antepartum documented in this encounter
--- OUTSIDE RECORDS SUMMARY | 2023-09-27 15:24 | XMS_ITS | Encounter Summary ---
Author Organization [facility] Address [facility] [place] [address] Care Team Providers Care Blueprinting And Photocopy Supervisor Name Role Phone Estephania Guzman Primary Care Provider [phone] Reason for Referral * Consultation (Routine) - Closed Specialty Diagnoses / Procedures Referred By Contac t Referred To Contact Neurosurgery Diagnoses Nerve injury Carpal tunnel syndrome on right Max Spaulding MD [address] [place] [address] Jana Muse MD [facility] [place] [address] Referral ID Status Reason Start Date Expiration Date V isits Requested Visits Authorized [id number] Closed Consult, Test & Treat PCP Updated and/or Approved 09/05/2021 09/05/2022 6 6 Encounter Details Date Type Department Care Team (Latest Contact Info) Description 09/05/2021 Transcribe Orders eDH Incoming Referrals [phone] Max Spaulding MD [address] [place] [address] Nerve injury; Carpal tunnel syndrome on right Social History Tobacco Use Types Packs/Day Years Used Date Smoking Tobacco: Former Cigarettes Q uit: 04/26/2005 Sex and Gender Information Value Date Recorded Sex Assigned at Not on file Gender Identity Not on file Sexual Orientation Not on file documented as of this encounter Plan of Treatment Scheduled Referrals Name Type Priority Associated Diagnoses Order Schedule Referral to Neurosurgery Outpatient Referral Routine Nerve injury Carpal tunnel syndrome on right Ordered: 09/05/2021 documented as of this encounter Visit Diagnoses Diagnosis Nerve injury Injury to nerves, unspecified site Carpal tunnel syndrome on right Carpal tunnel syndrome documented in this encounter Care Teams Blueprinting And Photocopy Supervisor Relationship Specialty Start Date End Date Estephania Guzman PA [address] [place] [address] PCP - General Family Medicine 10/12/20 documented as of this encounter
--- OUTSIDE RECORDS SUMMARY | 2023-09-27 15:24 | XMS_ITS | Data Portability ---
Author Organization [facility] Address [address] [place] [address] Assessment No assessment recorded. Plan of Treatment Reminders Order Date Submit Date Provider Last Modified By Organization Details Last Modified Time Details Appointments Annual Wellness Exam 40 2023 01:00P M GITA ASHER Not available Not available Not available Lab None recorded. Referral None recorded. Procedures None recorded. Surgeries None recorded. Imaging None recorded. Medication Orders Vyvanse 20 mg capsule 2023 024 [facility], [address] [place], [address], 03/04/2023 14:05:42 Vyvanse 30 mg capsule 2023 024 [facility], [address] [place] [address], [address], 03/04/2023 14:05:39 Vyvanse 30 mg capsule 2023 024 [facility], [address] [place], [address], 03/04/2023 14:05:40 Vyvanse 20 mg capsule 2023 024 [facility], [address] [place], [address], 03/04/2023 14:05:42 Vyvanse 30 mg capsule 2023 024 [facility], [address] [place], [address], 03/04/2023 14:05:39 Vyvanse 20 mg capsule 2023 024 [facility], [address] [place], [address], 03/04/2023 14:05:40 Patient TargetsNo targets recorded. Patient InstructionsNo instructions recorded. Reason for Referral None Reported. Problems Name Status Onset Date Resolution Date Notes Provider Name and Address Organization Details Recorded Time Obesity Active 201104/19/2016 - Comments only - Gita Asher PA-C - BMI 45. Given that previous attempts towards addressing diet/food have created for high emotional response, will defer any specific interventions to this end for the time being. Instead, patient agrees to focus efforts towards daily exercise (Fitbit tracker, at-home videos/[employer], gym membership). Problem Code: E66.9; Problem Code Type: ICD-10; Not Available [facility] 3 04:55:43 Nicotine dependence Active 2011 Problem Code: Z87.891; Problem Code Type: ICD-10; Not Available [facility] 3 04:55:43 Major depression, single episode Active 201211/11/2019 - Comments only - Gita Asher PA-C - - DEPRESSION/AN XIETY, BINGE EATING DISORDER, FAMILY STRESS Supportive listening comprised the bulk of today's visit. Overall, stable on EFFEXOR XR 150mg QD, RFd VYVANSE 30mg QAM/30mg at noontime/20mg in early evening, and ATIVAN 1mg PRN for acute panic. Problem Code: F32.9; Problem Code Type: ICD-10; Not Available [facility] 3 04:55:43 Generalized anxiety disorder Active 201212/10/2021 - Comments only - Gita Asher PA-C - - ANXIETY, BINGE EATING DISORDER To continue on EFFEXOR XR 75mg QD, NAC 1200mg BID, and VYVANSE 30mg QAM/30mg at noontime/20mg in early evening as RXd and supplement with ATIVAN 0.5mg PRN for acute anxiety. Problem Code: F41.1; Problem Code Type: ICD-10; Not Available [facility] 3 04:55:43 Allergic rhinitis Completed 201408/25/2014 07/26/2014 - Comments only - Gita Asher PA-C - Will replace OTC JOSE with RXd ZYRTEC 10mg QD as trial. Patient will otherwise continue on FLONASE and consider supplementing with OTC BENADRYL QHS PRN. Problem Code: J30.9; Problem Code Type: ICD-10; Not Available [facility] 3 04:55:44 Noncompliance in general Completed 201412/18/2014 Not Available [facility] 3 04:55:44 Gestational diabetes mellitus Active 201511/13/2020 - Comments only - Gita Asher PA-C - - H/O GESTATIONAL DM Last A1C WNLs. Will consider to monitor annually as component of health maintenance. Problem Code: O24.419; Problem Code Type: ICD-10; Not Available [facility] 3 04:55:44 Essential hypertension Active 201512/10/2021 - Comments only - Gita Asher PA-C - - HTN, RAYNAUD'S DISEASE Today's BP suggests excellent control on NIFEDIPINE 30mg QD. Will plan to repeat fasting labs (lipid profile, BMP) when patient returns for flu and COVID booster with [facility] at next available. Problem Code: I10; Problem Code Type: ICD-10; Not Available [facility] 3 04:55:44 Melanocytic nevus Completed 201612/31/2016 12/17/2016 - Comments only - Gita Asher PA-C - Although without characteristi cs to raise concern for malignancy, given size and location to cause for mechanical irritation from undergarments , will arrange for excisional biopsy via PAG at next available. Problem Code: D22.9; Problem Code Type: ICD-10; Not Available [facility] 3 04:55:44 Disorder of skin and/or subcutaneous tissue Completed 201601/30/2017 01/18/2017 - Comments only - Gita Asher PA-C - Suspect seborrheic dermatitis, however, if sxs fail to improve with more aggressive antifungal treatments (tar based shampoo 2x/week, SELSUN BLUE on alternate days) +/- RXd CLOBETASOL SOLN BID PRN ITCH, with eye towards potential for psoriasis, would consider for dermatology refer for scalp biopsy to guide more advanced immunosuppres sive therapies. Problem Code: L98.9; Problem Code Type: ICD-10; Not Available [facility] 3 04:55:44 Attention deficit hyperactivity disorder, predominantly inattentive type Active 201608/14/2022 - Comments only - Gita Asher PA-C - Bulk of today's extended visit was spent in supportive listening and redirection of patterns of negative thinking. Patient again encouraged to establish with outside counseling provider (list of local contacts reprinted) for ?CBT +/- trauma processing. She will continue on EFFEXOR XR 75mg QD, NAC 1200mg BID, and VYVANSE 30mg QAM/30mg at noontime/20mg in early evening as RXd and supplement with ATIVAN 0.5mg PRN for acute anxiety. Could consider return to [facility] (last 04/2021) for med consult with future visits. Problem Code: F90.0; Problem Code Type: ICD-10; Not Available [facility] 3 04:55:45 Removal of suture Completed 201601/30/2017 Problem Code: Z48.02; Problem Code Type: ICD-10; Not Available [facility] 3 04:55:45 Hypertrophic condition of skin Completed 201709/14/2017 08/31/2017 - Comments only - Gita Asher PA-C - Will arrange for excision via PAG at next available Problem Code: L91.8; Problem Code Type: ICD-10; Not Available [facility] 3 04:55:45 Localized eruption of skin Completed 201709/14/2017 08/31/2017 - Comments only - Gita Asher PA-C - Suggested patient to trial OTC TEA TREE OIL as first line. Will consider for more conventional topical antifungal agents if sxs ongoing Problem Code: R21; Problem Code Type: ICD-10; Not Available [facility] 3 04:55:45 Hypertrophic condition of skin Completed 201710/03/2017 Problem Code: L91.8; Problem Code Type: ICD-10; Not Available [facility] 3 04:55:45 General examination of patient Active 201711/13/2020 - Comments only - Gita Asher PA-C - PAP collected today. Patient opting to defer flu shot until next visit. Problem Code: Z00.8; Problem Code Type: ICD-10; Not Available [facility] 3 04:55:45 Housing problems Completed 201703/04/2023 02/26/2018 - Comments only - Gita Asher PA-C - Will refer to [facility] for financial coaching. GITA ASHER PA-C [address], [place], [address] , [facility]. 4 14:01:52 Binge eating disorder Active 201809/18/2021 - Improved - Gita Asher PA-C - To continue on EFFEXOR XR 75mg QD, NAC 1200mg BID, and RFd VYVANSE 30mg QAM/30mg at noontime/20mg in early evening as RXd. Problem Code: F50.81; Problem Code Type: ICD-10; Not Available [facility] 3 04:55:46 Raynaud's disease Active 201802/13/2020 - Comments only - Gita Asher PA-C - Maintained on ADALAT ER 30mg QD. Problem Code: I73.00; Problem Code Type: ICD-10; Not Available [facility] 3 04:55:46 Carpal tunnel syndrome of right wrist Completed 201805/04/2018 Problem Code: G56.01; Problem Code Type: ICD-10; Not Available [facility] 3 04:55:46 Pain in right lower limb Completed 201902/24/2020 02/13/2020 - Comments only - Gita Asher PA-C - Suspect sciatica. Will refer to PT for guided rehab. Problem Code: M79.604; Problem Code Type: ICD-10; Not Available [facility] 3 04:55:46 Posttraumatic stress disorder Active 202006/03/2022 - Comments only - Gita Asher PA-C - Bulk of today's extended visit was spent in supportive listening and redirection of pathologic patterns of negative thinking. Patient encouraged to establish with outside counseling provider for ?CBT +/- trauma processing. She will continue on EFFEXOR XR 75mg QD, NAC 1200mg BID, and VYVANSE 30mg QAM/30mg at noontime/20mg in early evening as RXd and supplement with ATIVAN 0.5mg PRN for acute anxiety. Problem Code: F43.10; Problem Code Type: ICD-10; Not Available [facility] 3 04:55:47 Family history of breast cancer Active 2020 Problem Code: Z80.3; Problem Code Type: ICD-10; Not Available [facility] 3 04:55:47 Partner relationship problem Active 2020 Problem Code: Z63.0; Problem Code Type: ICD-10; Not Available [facility] 3 04:55:47 Dysuria Completed 202003/04/2023 11/13/2020 - Comments only - Gita Asher PA-C - In-office U/A OK. Patient encouraged to continue to push fluids for flushing effect and call if she does not acheive expected improvement over the course of the week. Problem Code: R30.0; Problem Code Type: ICD-10; GITA ASHER PA-C [address], [place], [address] , [facility]. 4 14:01:33 Counseling Completed 202011/27/2020 11/13/2020 - Comments only - Gita Asher PA-C - After review of various contraceptive options, we have opted to refer to [facility] to discuss IUD placement. Problem Code: Z71.89; Problem Code Type: ICD-10; Not Available [facility] 3 04:55:47 Benign lipomatous tumor Completed 202104/12/2021 Problem Code: D17.9; Problem Code Type: ICD-10; Not Available [facility] 3 04:55:47 Lesion of median nerve Active 202106/03/2022 - Comments only - Gita Asher PA-C - - BILATERAL MEDIAN NEUROPATHY Sxs stable at present. As such patient would prefer to hold on scheduling for MRI and OT guided rehab through [facility] (re: right CTS) and/or rescheduling of left CTS release ([facility]) Problem Code: G56.10; Problem Code Type: ICD-10; Not Available [facility] 3 04:55:48 Acute pharyngitis Completed 202103/04/2023 12/10/2021 - Comments only - Gita Asher PA-C - In-office COVID and flu testing NEGATIVE. Will await confirmatory COVID laboratory PCR. In the interim, Yadira will continue with supportive/sy mptomatic treatment interventions . Problem Code: J02.9; Problem Code Type: ICD-10; [address] [place], [address] , [facility] 4 14:01:30 Screening mammography Active 2022 Problem Code: Z12.31; Problem Code Type: ICD-10; Not Available [facility] 3 04:55:48 Exposure to communicable disease Completed 202203/04/2023 Problem Code: Z20.828; Problem Code Type: ICD-10; [address] [place], [address] , [facility] 4 14:01:43 Pain in left foot Completed 201706/01/2017 Problem Code: M79.672; Problem Code Type: ICD-10; Not Available [facility] 3 04:55:49 Disorder of skin and/or subcutaneous tissue Completed 201601/18/2017 Problem Code: L98.9; Problem Code Type: ICD-10; Not Available [facility] 3 04:55:49 Non-scarring alopecia Completed 201501/18/2017 Problem Code: L65.9; Problem Code Type: ICD-10; Not Available [facility] 3 04:55:49 Surveillance of oral contraception Completed 201401/18/2017 Problem Code: Z30.41; Problem Code Type: ICD-10; Not Available [facility] 3 04:55:50 Depressive disorder Completed 201211/26/2022 Problem Code: 311; Problem Code Type: ICD-9; Not Available [facility] 3 04:55:50 History of clinical finding in subject Completed 201111/26/2022 Not Available [facility] 3 04:55:50 Acute upper respiratory infection Completed 201401/18/2017 Problem Code: J06.9; Problem Code Type: ICD-10; Not Available [facility] 3 04:55:51 Periapical abscess Completed 202211/25/2022 11/11/2022 - Comments only - Gita Asher PA-C - MSG to SAY to assist patient in finding dental provider for definitive treatment. In the interim, patient to continue on CLINDAMYCIN as RXd by ED provider. Problem Code: K04.7; Problem Code Type: ICD-10; Not Available [facility] 4 05:35:56 Counseling Completed 202211/25/2022 11/11/2022 - Comments only - Gita Asher PA-C - Patient reassured it is unnecessary to pursue replacement of MIRENA IUD unless she develops sxs to warrant hormonal intervention (ex. abnormal uterine bleeding). F/U PRN. Problem Code: Z71.89; Problem Code Type: ICD-10; Not Available [facility] 4 05:35:56 Problem Notes None recorded. Medical Equipment None Reported. Allergies No known drug allergies Medications Name Sig Start Date Stop Date Status Note LastModified by Organization Details LastModified Time nifedipine ER 30 mg tablet,exte nded release 24 hr TAKE ONE TABLET BY MOUTH EVERY DAY 2018 active Not Available Not Available Not Avai lable Mirena 21 mcg/24 hr (up to 8 years) 52 mg intrauterin e device active Not Available Not Available Not Available venlafaxine ER 75 mg capsule,ext ended release 24 hr TAKE ONE CAPSULE BY MOUTH EVERY DAY active Not Available Not Available No t Available trazodone 50 mg tablet Take one tablet by mouth at bedtime 11/13 completed Not Available Not Available Not Available triamcinolo ne acetonide 0.5 % topical cream apply topically to affected area BID for less than 2 weeks at a time - lower legs Enough to cover lower legs for 2 weeks 12/12 completed Not Available Not Available Not Available azithromyci n 250 mg tablet 1kit daily 01/05 completed Not Available Not Available Not Available Prozac 40 mg capsule 1 qd 09/18 completed Not Available Not Available Not Available Vicodin 5 mg-500 mg tablet 1 TAB at bedtime 01/03 completed Not Available Not Available Not Available Ritalin 20 mg tablet Take 1 tablet by mouth twice daily. 11/13 completed Not Available Not Available Not Available Ativan 1 mg tablet Take 1 tablet by mouth three times a day as needed 02/14 completed Not Available Not Available Not Available Effexor XR 37.5 mg capsule,ext ended release Take 1 tab by mouth daily - TAKE IN COMBINATI ON WITH 75MG 05/27 completed Not Available Not Available Not Available Flonase 50 mcg/DOSE nasal inhaler 2 SPRAY daily 04/28 completed Not Available Not Available Not Available Flonase 50 mcg/actuati on nasal spray,suspe nsion 2 sprays to each nostril daily as needed for allergy symptoms 12/17 completed Not Available Not Available Not Available Zyrtec 10 mg tablet take 1 tablet daily prn 01/16 completed Not Available Not Available Not Available nifedipine ER 30 mg tablet,exte nded release TAKE ONE TABLET BY MOUTH EVERY DAY active Not Available Not Available No t Available amoxicillin 500 mg tablet 1 CAP twice daily 10/22 completed Not Available Not Available Not Available Ritalin 10 mg tablet 1 TAB QAM 01/20 completed Not Available Not Available Not Available Nortrel 35 (28) 1 mg-35 mcg tablet Take 1 tablet by mouth once a day 12/12 completed Not Available Not Available Not Available Celexa 20 mg tablet 1 TAB qhs 10/03 completed Not Available Not Available Not Available lorazepam 2 mg tablet 1TAB DAILY 03/24 completed Not Available Not Available Not Available Effexor XR 150 mg capsule,ext ended release 1 tab by mouth daily 05/09 completed Not Available Not Available Not Available promethazin e 25 mg tablet Take one tablet PO three times daily with meals, as needed. 12/17 completed Not Available Not Available Not Available Ativan 0.5 mg tablet Take 1 tablet by mouth once a day as needed for extreme anxiety 2021 active Not Available Not Available Not Avai lable Naprosyn 500 mg tablet 1 TAB twice daily 07/20 completed Not Available Not Available Not Available nifedipine ER 60 mg tablet,exte nded release Take 1 tablet by mouth once a day NOTE CHANGE OF DOSE 2020 active Not Available Not Available Not Avai lable clobetasol 0.05 % scalp solution APPLY TO SCALP TWICE DAILY NEEDED FOR ITCH/RASH 01/19 completed Not Available Not Available Not Available doxycycline hyclate 100 mg tablet 1 TAB twice daily 02/05 completed Not Available Not Available Not Available loratadine 10 mg tablet 1TAB daily 07/20 completed Not Available Not Available Not Available Flexeril 10 mg tablet 1 TAB BID 10/22 completed Not Available Not Available Not Available Bactrim DS 800 mg-160 mg tablet 1 TAB twice daily 11/15 completed Not Available Not Available Not Available Vitamin B-12 1,000 mcg tablet 1TAB daily 07/20 completed Not Available Not Available Not Available Vitamin D 04/28 completed Not Available Not Available Not Available multivitami n 07/20 completed Not Available Not Available Not Available acetylcyste ine 600 mg capsule TAKE TWO CAPSULES BY MOUTH TWICE A DAY NEEDED active Not Available Not Available No t Available Vyvanse 30 mg capsule active Not Available Not Available N ot Available Vyvanse 20 mg capsule Take 1 capsule by mouth every evening 2023 active Not Available Not Available Not Avai lable Vyvanse 10 mg capsule 1 cap by mouth in late afternoon 03/26 completed Not Available Not Available Not Available Vitals Date Recorded Body height Oxygen saturation Oxygen saturation in Arterial blood by Pulse oximetry Heart rate Body mass index (BMI) Body weight Systolic blood pressure Diastolic blood pressure Provider Name and Address Organization Details Last Updated DateTime 4 171.45 cm 99 % 99 % 79 /min 36 kg/m2 685169. 12 g 120 mm[Hg] 70 mm[Hg] TAWANDA JEAN MA [facility] 4 11:13:35 Date Recorded Body height Body mass index (BMI) Body weight Heart rate Systolic blood pressure Diastolic blood pressure Provider Name and Address Organization Details Last Updated DateTime 4 171.45 cm 32.3 kg/m2 38895.2 1 g 76 /min 126 mm[Hg] 82 mm[Hg] ROSALIND KLEIN LPN [facility] 4 11:23:00 Social History Question Answer Notes LastModified by Organizat ion Details LastModified Time Tobacco Smoking Status Former Smoker TAWANDA JEAN MA [facility], [facility] 03/04/2023 11:15:44 When Did You Quit Smoking? 11-15yearssi ncelastcigar ette Information not available 03/04/2023 What Was The Date Of Your Most Recent Tobacco Screening? 03/04/2023 Information not available 03/04/2023 What Is Your Current Pack Years? 10packyears Information not available 03/04/2023 At What Age Did You Start Smoking Tobacco? 17 Information not available 03/04/2023 How Much Tobacco Do You Smoke? No Information not available 03/04/2023 How Many Years Have You Smoked Tobacco? 7 Information not available 03/04/2023 Do You Or Have You Ever Used Any Other Forms Of Tobacco Or Nicotine? No Information not available 03/04/2023 Sex: Female Functional Status None recorded. Mental Status None recorded. Family History Relationship Description Onset Age of this Age Resolved Age Notes Notes:*Problem: Mother: Gopal rodríguez age 60 HTN, ex-smoker, quit age 59, depression, PTSD Father: Alive age 62, htn, hyperlipidemia, [place] age 57, etohic-- from mom Sisters: None Brothers: 2 older, both overweight both with HTN Children: 2 sons Luis born 08/01/06 and Bony born 12/15/09, both healthy Family History of: Hypertension: Yes Hyperlipidemia: Yes Coronary heart disease: Yes Diabetes mellitus: No Breast cancer: yes, both of mom's sisters and PGM of breast cancer about age 72 Colorectal cancer: No Prostate cancer: No Alcoholism: Yes only in her father Mental illness: mom with depression and PTSD Other: No Medical History No medical history recorded. Gynecological HistoryNo gynecological history recorded. Obstetrics History GPAL:G 3 P 0 0 0 3 Type Value Living 3 Total 3 Immunizations Vaccine Type Date Status Provider Name and Address Organization Details Recorded Time Tdap 01/26/2012 completed Not Available [facility] 06:08:55 Influenza, split virus, quadrivalent, PF 01/11/2020 completed Not Available [facility] 01/09/2023 06:08:55 COVID-19, mRNA, LNP-S, PF, 100 mcg/0.5mL dose or 50 mcg/0.25mL dose 07/16/2020 completed Not Available [facility] 01/10/20 06:08:55 COVID-19, mRNA, LNP-S, PF, 100 mcg/0.5mL dose or 50 mcg/0.25mL dose 08/13/2020 completed Not Available [facility] 01/10/20 06:08:55 influenza, unspecified formulation 12/09/2011 completed Not Available [facility] 01/09/2023 06:08:55 influenza, unspecified formulation 12/18/2010 completed Not Available [facility] 01/09/2023 06:08:55 Tdap 07/22/2015 completed KEVIN NAJERA, [facility] 08/18/2023 10:28:14 Past Encounters Encounter ID Performer Location Encounter Start Date Encounter Closed Date Diagnosis/Indication Diagnosis SNOMED-CT Code [id number] GITA ASHER PA-C [address] [address] 03/04/2023 11:03:55 03/04/2023 12:08:45 Attention deficit hyperactivity disorder, predominantly inattentive type 27569557 Essential hypertension 27494721 [id number] GITA ASHER PA-C [address] [address] 08/18/2023 11:20:14 08/18/2023 12:37:17 Essential hypertension 26356075 Binge eating disorder 43 2758813 Health Concerns Section Related Observation LastModified by Organization Detai ls LastModified Time None Recorded Concern Status LastModified by Organization Details LastModified Time None Recorded Advance Directives Directive None Recorded Payers Encounter Date Sequence Insurance Name Policy Number Policy [place] Covered Member ID [place] Member ID Guarantor Name 03/04/2023 1 [facility] (MEDICAID) Yadira S Onesimo [id number] Yadira S Onesimo 08/18/2023 1 [facility] (MEDICAID) Yadira S Rice [id number] Yadira S Rice Notes Date Note Type Note Provider Name and Address Organization Details Recorded Time 03/04/2023 text/html HPI Notes: 42y/o female presenting f/u HTN and anxiety/ADD/binge eating disorder. [address], [place], [address], [facility]. 03/04/2023 14:05:49 08/18/2023 text/html HPI Notes: 43y/o female presenting f/u HTN and anxiety/ADD/binge eating disorder. Visit initially scheduled as AE, however, we opted to RS due to patient arrived late. [address], [place], [address], [facility]. 08/21/2023 14:44:02 OBGyn Episode No OBEpisode recorded.
--- OUTSIDE RECORDS SUMMARY | 2023-09-27 15:24 | XMS_ITS | Continuity of Care Document ---
Author Organization [facility] Address [address] [place] [address] Assessment No assessment recorded. Plan of Treatment Reminders Order Date Submit Date Provider Last Modified By Organization Details Last Modified Time Details Appointments Annual Wellness Exam 40 2023 01:00P M GITA ASHER Not available Not available Not available Lab None recorded. Referral None recorded. Procedures None recorded. Surgeries None recorded. Imaging None recorded. Medication Orders None recorded. Patient TargetsNo targets recorded. Patient InstructionsNo instructions [...] E66.9; Problem Code Type: ICD-10; Not Available [facility] 3 04:55:43 Nicotine dependence Active 2011 Problem Code: Z87.891; Problem Code Type: ICD-10; Not Available [facility] 3 04:55:43 Major depression, single [...] F32.9; Problem Code Type: ICD-10; Not Available [facility] 3 04:55:43 Generalized anxiety disorder Active 201212/10/2021 - Comments only - Gita Asher PA-C - - ANXIETY, BINGE EATING DISORDER To continue on EFFEXOR XR 75mg QD, NAC 1200mg BID, and VYVANSE 30mg QAM/30mg at noontime/20mg in early evening as RXd and supplement with ATIVAN 0.5mg PRN for acute anxiety. Problem Code: F41.1; Problem Code Type: ICD-10; Not Available [facility] 3 04:55:43 Allergic rhinitis Completed 201408/25/2014 07/26/2014 - Comments only - Gita Asher PA-C - Will replace OTC JOSE with RXd ZYRTEC 10mg QD as trial. Patient will otherwise continue on FLONASE and consider supplementing with OTC BENADRYL QHS PRN. Problem Code: J30.9; Problem Code Type: ICD-10; Not Available [facility] 3 04:55:44 Noncompliance in general Completed 201412/18/2014 Not Available [facility] 3 04:55:44 Gestational diabetes mellitus Active 201511/13/2020 - Comments only - Gita Asher PA-C - - H/O GESTATIONAL DM Last A1C WNLs. Will consider to monitor annually as component of health maintenance. Problem Code: O24.419; Problem Code Type: ICD-10; Not Available [facility] 3 04:55:44 Essential hypertension Active 201512/10/2021 - Comments only - Gita Asher PA-C - - HTN, RAYNAUD'S DISEASE Today's BP suggests excellent control on NIFEDIPINE 30mg QD. Will plan to repeat fasting labs (lipid profile, BMP) when patient returns for flu and COVID booster with [facility] at next available. Problem Code: I10; Problem Code Type: ICD-10; Not Available [facility] 3 04:55:44 Melanocytic nevus Completed 201612/31/2016 12/17/2016 - Comments only - Gita Asher PA-C - Although without characteristi cs to raise concern for malignancy, given size and location to cause for mechanical irritation from undergarments , will arrange for excisional biopsy via PAG at next available. Problem Code: D22.9; Problem Code Type: ICD-10; Not Available [facility] 3 04:55:44 Disorder of skin and/or subcutaneous [...] L98.9; Problem Code Type: ICD-10; Not Available [facility] 3 04:55:44 Attention deficit hyperactivity disorder, predominantly [...] for acute anxiety. Could consider return to [facility] (last 04/2021) for med consult with future visits. Problem Code: F90.0; Problem Code Type: ICD-10; Not Available [facility] 3 04:55:45 Removal of suture Completed 201601/30/2017 Problem Code: Z48.02; Problem Code Type: ICD-10; Not Available [facility] 3 04:55:45 Hypertrophic condition of skin Completed 201709/14/2017 08/31/2017 - Comments only - Gita Asher PA-C - Will arrange for excision via PAG at next available Problem Code: L91.8; Problem Code Type: ICD-10; Not Available [facility] 3 04:55:45 Localized eruption of skin Completed 201709/14/2017 08/31/2017 - Comments only - Gita Asher PA-C - Suggested patient to trial OTC TEA TREE OIL as first line. Will consider for more conventional topical antifungal agents if sxs ongoing Problem Code: R21; Problem Code Type: ICD-10; Not Available [facility] 3 04:55:45 Hypertrophic condition of skin Completed 201710/03/2017 Problem Code: L91.8; Problem Code Type: ICD-10; Not Available [facility] 3 04:55:45 General examination of patient Active 201711/13/2020 - Comments only - Gita Asher PA-C - PAP collected today. Patient opting to defer flu shot until next visit. Problem Code: Z00.8; Problem Code Type: ICD-10; Not Available [facility] 3 04:55:45 Housing problems Completed 201703/04/2023 02/26/2018 - Comments only - Gita Asher PA-C - Will refer to [facility] Outreach and Enrollment for financial coaching. GITA ASHER PA-C [address], [place], [address] , [place] - [facility]. 4 14:01:52 Binge eating disorder Active 201809/18/2021 - Improved - Gita Asher PA-C - To continue on EFFEXOR XR 75mg QD, NAC 1200mg BID, and RFd VYVANSE 30mg QAM/30mg at noontime/20mg in early evening as RXd. Problem Code: F50.81; Problem Code Type: ICD-10; Not Available [facility] 3 04:55:46 Raynaud's disease Active 201802/13/2020 - Comments only - Gita Asher PA-C - Maintained on ADALAT ER 30mg QD. Problem Code: I73.00; Problem Code Type: ICD-10; Not Available [facility] 3 04:55:46 Carpal tunnel syndrome of right wrist Completed 201805/04/2018 Problem Code: G56.01; Problem Code Type: ICD-10; Not Available [facility] 3 04:55:46 Pain in right lower limb Completed 201902/24/2020 02/13/2020 - Comments only - Gita Asher PA-C - Suspect sciatica. Will refer to PT for guided rehab. Problem Code: M79.604; Problem Code Type: ICD-10; Not Available [facility] 3 04:55:46 Posttraumatic stress disorder Active 202006/03/2022 [...] F43.10; Problem Code Type: ICD-10; Not Available [facility] 3 04:55:47 Family history of breast cancer Active 2020 Problem Code: Z80.3; Problem Code Type: ICD-10; Not Available [facility] 3 04:55:47 Partner relationship problem Active 2020 Problem Code: Z63.0; Problem Code Type: ICD-10; Not Available [facility] 3 04:55:47 Dysuria Completed 202003/04/2023 11/13/2020 - Comments only - Gita Asher PA-C - In-office U/A OK. Patient encouraged to continue to push fluids for flushing effect and call if she does not acheive expected improvement over the course of the week. Problem Code: R30.0; Problem Code Type: ICD-10; [address] [place], [address] , [facility] 4 14:01:33 Counseling Completed 202011/27/2020 11/13/2020 - Comments only - Gita Asher PA-C - After review of various contraceptive options, we have opted to refer to [facility] to discuss IUD placement. Problem Code: Z71.89; Problem Code Type: ICD-10; Not Available [facility] 3 04:55:47 Benign lipomatous tumor Completed 202104/12/2021 Problem Code: D17.9; Problem Code Type: ICD-10; Not Available [facility] 3 04:55:47 Lesion of median nerve Active 202106/03/2022 - Comments only - Gita Asher PA-C - - BILATERAL MEDIAN NEUROPATHY Sxs stable at present. As such patient would prefer to hold on scheduling for MRI and OT guided rehab through [facility] (re: right CTS) and/or rescheduling of left CTS release ([facility]) Problem Code: G56.10; Problem Code Type: ICD-10; Not Available [facility] 3 04:55:48 Acute pharyngitis Completed 202103/04/2023 12/10/2021 - Comments only - Gita Asher PA-C - In-office COVID and flu testing NEGATIVE. Will await confirmatory COVID laboratory PCR. In the interim, Yadira will continue with supportive/sy mptomatic treatment interventions . Problem Code: J02.9; Problem Code Type: ICD-10; [address], [place], [address] , [facility] 4 14:01:30 Screening mammography Active 2022 Problem Code: Z12.31; Problem Code Type: ICD-10; Not Available [facility] 3 04:55:48 Exposure to communicable disease Completed 202203/04/2023 Problem Code: Z20.828; Problem Code Type: ICD-10; GITA ASHER PA-C [address], [place], [address] , [facility] 4 14:01:43 Pain in left foot Completed 201706/01/2017 Problem Code: M79.672; Problem Code Type: ICD-10; Not Available [facility] 3 04:55:49 Disorder of skin and/or subcutaneous tissue Completed 201601/18/2017 Problem Code: L98.9; Problem Code Type: ICD-10; Not Available [facility] 3 04:55:49 Non-scarring alopecia Completed 201501/18/2017 Problem Code: L65.9; Problem Code Type: ICD-10; Not Available [facility] 3 04:55:49 Surveillance of oral contraception Completed 201401/18/2017 Problem Code: Z30.41; Problem Code Type: ICD-10; Not Available [facility] 3 04:55:50 Depressive disorder Completed 201211/26/2022 Problem Code: 311; Problem Code Type: ICD-9; Not Available [facility] 3 04:55:50 History of clinical finding in subject Completed 201111/26/2022 Not Available [facility] 3 04:55:50 Acute upper respiratory infection Completed 201401/18/2017 Problem Code: J06.9; Problem Code Type: ICD-10; Not Available [facility] 3 04:55:51 Periapical abscess Completed 202211/25/2022 11/11/2022 - Comments only - Gita Asher PA-C - G to SAY to assist patient in finding dental provider for definitive treatment. In the interim, patient to continue on CLINDAMYCIN as RXd by ED provider. Problem Code: K04.7; Problem Code Type: ICD-10; Not Available [facility] 4 05:35:56 Counseling Completed 202211/25/2022 11/11/2022 - Comments only - Gita Asher PA-C - Patient reassured it is unnecessary to pursue replacement of MIRENA IUD unless she develops sxs to warrant hormonal intervention (ex. abnormal uterine bleeding). F/U PRN. Problem Code: Z71.89; Problem Code Type: ICD-10; Not Available [facility] 4 05:35:56 Problem Notes None recorded. Medical [...] Not Available Not Available Not Available Nortrel 1/35 (28) 1 mg-35 mcg tablet Take 1 [...] Not Available Vitals Date Recorded Body height Body mass index (BMI) Body weight Heart rate Systolic blood pressure Diastolic blood pressure Provider Name and Address Organization Details Last Updated DateTime 4 171.45 cm 32.3 kg/m2 91416.2 1 g 76 /min 126 mm[Hg] 82 mm[Hg] ROSALIND KLEIN LPN [facility] 4 11:23:00 Social History Question Answer Notes LastModified by Organizat ion Details LastModified Time Tobacco Smoking Status Former Smoker BRIANNE JOSHI, [facility] 03/04/2023 11:15:44 When Did You Quit [...] this Age Resolved Age Notes Notes:*Problem: Mother: Aliv e age 60 HTN, ex-smoker, quit age 59, depression, PTSD Father: Alive age 62, htn, hyperlipidemia, [place] age 57, etohic-- from mom Sisters: None [...] Recorded Time Tdap 01/26/2012 completed Not Available [facility] 06:08:55 Influenza, split virus, quadrivalent, PF 01/11/2020 completed Not Available [facility] 01/09/2023 06:08:55 COVID-19, mRNA, LNP-S, PF, 100 mcg/0.5mL dose or 50 mcg/0.25mL dose 07/16/2020 completed Not Available [facility] 01/10/20 06:08:55 COVID-19, mRNA, LNP-S, PF, 100 mcg/0.5mL dose or 50 mcg/0.25mL dose 08/13/2020 completed Not Available [facility] 01/10/20 06:08:55 influenza, unspecified formulation 12/09/2011 completed Not Available [facility] 01/09/2023 06:08:55 influenza, unspecified formulation 12/18/2010 completed Not Available [facility] 01/09/2023 06:08:55 Tdap 07/22/2015 completed ROSALIND KLEIN LPN [facility], [facility], [facility] 08/18/2023 10:28:14 Past Encounters Encounter ID Performer Location Encounter Start Date Encounter Closed Date Diagnosis/Indication Diagnosis SNOMED-CT Code [id number] GITA ASHER PA-C [facility] [address] [place] [address] 08/18/2023 11:20:14 08/18/2023 12:37:17 Essential hypertension 36867888 Binge eating disorder 43 9984364 Health Concerns Section Related Observation LastModified by Organization Detai ls LastModified Time None Recorded Concern Status LastModified by Organization Details LastModified Time None Recorded Payers Encounter Date Sequence Insurance Name Policy Number Policy [place] Covered Member ID [place] Member ID Guarantor Name 08/18/2023 1 [facility] (MEDICAID) Yadira S Onesimo [id number] Yadira Echols Notes Date Note Type Note Provider Name and Address Organization Details Recorded Time 08/18/2023 text/html HPI Notes: 43y/o female presenting f/u HTN and anxiety/ADD/binge eating disorder. Visit initially scheduled as AE, however, we opted to RS due to patient arrived late. [address], [place], [address], [facility], [facility]. 08/21/2023 14:44:02 OBGyn Episode No OBEpisode recorded.
--- OUTSIDE RECORDS SUMMARY | 2023-09-27 15:24 | XMS_ITS | Encounter Summary ---
Author Organization [facility] Address [facility] [place] [address] Care Team Providers Care Developer Advocate Name Role Phone Unavailable Primary Care Provider Unavailabl e Reason for Visit * Reason Comments Advice Only * Consultation (Routine) - Closed Specialty Diagnoses / Procedures Referred By Contac t Referred To Contact Maternal and Medicine / Obstetrics and Gynecology Diagnoses at 36 weeks, [facility] Procedures at 36 weeks, [facility] Liz Martin, [address] [place] [address] [facility] [address] [place] [address] Referral ID Status Reason Start Date Expiration Date Visits Re quested Visits Authorized [id number] Closed 01/30/2015 01/30/2016 1 1 Encounter Details Date Type Department Care Team (Late st Contact Info) Description 04/26/2015 11:00 AM EST Office Visit Obstetrics [place] [address] Jackie Finley MD [facility] [address] OBSTETRICS [place] [address] Hypertension complicating , second trimester; H/O delivery, currently , second trimester Social History Tobacco Use Types Packs/Day Years Used Date Smoking Tobacco: Former Cigarettes Q uit: 04/26/2005 Comments Yes Sex and Gender Information Value Date Recorded Sex Assigned at Not on file Gender Identity Not on file Sexual Orientation Not on file documented as of this encounter Last Filed Vital Signs Vital Sign Reading Time Taken Comments Blood Pressure 144/92 04/26/2015 10:57 AM EST Pulse - - Temperature - - Respiratory Rate - - Oxygen Saturation - - Inhaled Oxygen Concentration - - Weight 136.7 kg (301 lb 4.8 oz) 016 10:57 AM EST Height 172.7 cm (5' 8) 04/26/2015 10:5 7 AM EST Body Mass Index 45.81 04/26/2015 10:57 AM EST documented in this encounter Progress Notes * Jackie Finley MD - 05/03/2015 9:25 AM EST Diagnosis/Maternal Medicine Consult Note Yadira Echols is a 34 y.o. year old female who is at 26w6d gestation. She is seen in consultation at the request of Mario Hu CNM for evaluation of due to prior . She was seen today for maternal- medicine consultation. Review of Systems Constitutional:feels well Movement: normal Contractions: none Leaking: None Bleeding: None There are no active problems to display for this patient. Past Medical History Diagnosis Date ??? Super obesity BMI 46 at onset of ??? Hypertension ??? Depression ??? Anxiety No past surgical history on file. No family history on file. Social History Occupational History ??? Not on file. Social History Main Topics ??? Smoking status: Former Smoker Quit date: 04/26/2005 ??? Smokeless tobacco: Not on file ??? Alcohol Use: Not on file ??? Drug Use: Not on file ??? Sexual Activity: Not on file OB History Para Term AB TAB SAB Ectopic Multiple Living 3 2 1 1 0 0 0 0 0 2 # Outc Date GA Lbr Gian/2nd Wgt Sex Del Anes PTL Lv 1 Term 37w0d Vag-Spont N Y 2 36w0d Vag-Spont Y Complications: premature rupture of membranes (PPROM) with unknown onset of labor 3 Current Current Outpatient Prescriptions Medication Sig Dispense Refill ??? venlafaxine (EFFEXOR-XR) 75 mg Capsule, Sust. Release 24 hr Daily ??? PNV/IRON,CARB/OM-3/FA/MIN AA (PRENAT [id number] ORAL) No current facility-administered medications for this visit. No Known Allergies Physical Exam BP 144/92 mmHg Ht 172.7 cm (5' 8) Wt 136.669 kg (301 lb 4.8 oz) BMI 45.82 kg/m2 General: alert, well appearing, in no apparent distress, oriented to person, place and time, overweight HEENT: normocephalic, atraumatic Abdomen: Soft, nontender, gravid. FH 28; FHT 140 Extremities: no edema Neurologic:alert, oriented, normal speech, no focal findings or movement disorder noted Psychiatric: Affect is Appropriate. Assessment and Recommendations: 34 y.o. year old female at 26w6d weeks gestation, referred for counseling regarding historyof and hypertension.We discussed the 30% risk of recurrent , and the fact that the gestational age at which the first occurs is not predictive of the GA at which the second could occur. We discussed the use of progesterone for recurrent risk reduction. Had the patient had a consultation earlier in the , the recommendations would include low dose aspirin (81mg) from 13 - 36 weeks for preeclampsia prophylaxis, and 17-OH progesterone for history of . She acknowledges that her OB providers sent in a referral much earlier in the p regnancy, and that she opted not to come to [facility] for consultation at that time. At this point in her , there are no data regarding the efficacy of initiation of either medication. In addition, it appears that the patient is not interested in initiation of either medication. We discussed that in future pregnancies it would be prudent to consider both low dose aspirin and progesterone. I I appreciate the opportunity to be involved in this patients care, and am available if further questions should arise. Jackie FINLEY MD 05/03/2015 Cc: Mario Hu CNM [address] [place] [address] documented in this encounter Plan of Treatment Not on file documented as of this encounter Visit Diagnoses Diagnosis Hypertension complicating , second trimester H/O delivery, currently , second trimester documented in this encounter
--- OUTSIDE RECORDS SUMMARY | 2023-09-27 15:24 | XMS_ITS | Encounter Summary ---
Author Organization [facility] Address [facility] [place] [address] Care Team Providers Care Magnetizer Name Role Phone Estephania Guzman Primary Care Provider [phone]- [phone] Reason for Referral * Occupational Therapy (Routine) - Closed Specialty Diagnoses / Procedures Referred By Andrew conde Referred To Contact Diagnoses Carpal tunnel syndrome on right Jana Muse MD [facility] [place] [place] [address] Referral ID Status Reason Start Date Expiration Date V isits Requested Visits Authorized [id number] Closed Evaluate and Treat 11/19/2021 05/18/2022 12 12 Reason for Visit * Consultation (Routine) - Closed Specialty Diagnoses / Procedures Referred By Andrew conde Referred To Contact Neurosurgery Diagnoses Nerve injury Carpal tunnel syndrome on right Max Spaulding MD [address] [place] [address] Jana Muse MD [facility] [place] [address] Referral ID Status Reason Start Date Expiration Date V isits Requested Visits Authorized [id number] Closed Consult, Test & Treat PCP Updated and/or Approved 09/05/2021 09/05/2022 6 6 Encounter Details Date Type Department Care Team (Late st Contact Info) Description 11/07/2021 1:40 PM EDT Office Visit Neurosurgery at [facility] [place] [address] Jana Muse MD [facility] [place] [address] Carpal tunnel syndrome on right (Primary Dx) Social History Tobacco Use Types Packs/Day Years Used Date Smoking Tobacco: Former Cigarettes Q uit: 04/26/2005 Smokeless Tobacco: Never Alcohol Use Standard Drinks/Week Comments Not Currently 0 (1 standard drink = 0.6 oz pur e alcohol) Sex and Gender Information Value Date Recorded Sex Assigned at Not on file Gender Identity Not on file Sexual Orientation Not on file documented as of this encounter Last Filed Vital Signs Vital Sign Reading Time Taken Comments Blood Pressure 127/90 11/07/2021 2:22 PM EDT Pulse 73 11/07/2021 2:22 PM EDT Temperature 36.8 ??C (98.2 ??F) 11/07/2021 2:22 PM ED T Respiratory Rate 17 11/07/2021 2:22 PM EDT Oxygen Saturation 96% 11/07/2021 2:22 PM EDT Inhaled Oxygen Concentration - - Weight 114.3 kg (252 lb) 11/07/2021 2:22 PM EDT Height 172.7 cm (5' 8) 11/07/2021 2:22 PM EDT Body Mass Index 38.32 11/07/2021 2:22 PM EDT documented in this encounter Progress Notes * Jana Muse MD - 11/07/2021 1:40 PM EDT Neurosurgery Consultation 11/07/2021 Yadira Echols [id number] CC: Carpal tunnel syndrome HPI: It was a pleasure to meet Yadira Echols at the request of Max Spaulding regarding repeat carpaltunnel syndrome. Ms. Echols is a 41 y.o. woman who presents with a chief concern of persistent right wrist and hand pain after endoscopic carpal tunnel release. She relates that 3 years ago she developed right CTS and underwent right carpal tunnel release. 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 After surgery her nubmness symptoms improved. However, she developed new pain around the incision from surgery. She kept expecting this to improve and lived with it for a year and a half, until she realized something was wrong. She did not see any help due to COVID shutdown. She currently states that she cannot hold a knife b/c feels the skin will tear in her palm. Any pressure is painful In the hand. Then 8 months ago she had new numbness in the lateral aspect of her right forearm, feels like she is rubbing a burn. She eventually saw Dr. Spaulding, with concerns of sensory disturbance over her incision. She statesthat she gets a deep ache in her wrist. He was concerned that that the median nerve might have beeninjured during surgery. She has had an EMG of the right arm, but we do not have the records here. PMH/PSH: Past Medical History: Diagnosis Date ??? Anxiety ??? Depression ??? Hypertension ??? Super obesity BMI 46 at onset of History reviewed. No pertinent surgical history. Medications: Current Outpatient Medications on File Prior to Visit Medication Sig Dispense Refill ??? Vyvanse 30 mg Capsule Take 30 mg by mouth 2 times daily. ??? Vyvanse 20 mg Capsule Take 1 capsule by mouth daily. ??? Acetylcysteine 600 mg Capsule ??? NIFEdipine CC (Adalat CC) 30 mg Tablet Sustained Release Take by mouth. ??? venlafaxine (EFFEXOR-XR) 75 mg Capsule, Sust. Release 24 hr Daily No current facility-administered medications on file prior to visit. Allergies: No Known Allergies Family Hx: History reviewed. No pertinent family history. 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 HEENT: No recent visual changes / hearing changes. Cardiovascular: No chest pain / palpitations. Pulmonary: No shortness of breath / cough GI: No abdominal pain / vomiting / change in bowel pattern : No dysuria / urinary retention / urinary incontinence. Physical Exam: Vital Signs: BP 127/90 (BP Location (NBP): Right arm, Patient Position: Sitting, BP Cuff Sizes: Large Adult (32-43 cm)) Pulse 73 Temp 36.8 ??C (98.2 ??F) (Temporal) Resp 17 Ht 172.7 cm (5' 8) Wt 114.3 kg (252 lb) SpO2 96% BMI 38.32 kg/m?? General: NAD. Neuro: Mental Status/Cognitive: Awake, alert, oriented x3 Speech: Fluent, appropriate Detailed peripheral nerve exam. Upper extremity exam: No atrophy of the thenar eminence in the right. Well healed transverse wrist incision. Motor exam of the upper extremity: Nerve Muscle Action R L CN XI Trapezius Shoulder shrug 5 5 C5 Rhomboids Shoulder pinch 5 5 Long thoracic Serratus Anterior Cough 5 5 Med/Lat pectoral Pec major/minor Shoulder ADduction 5 5 Supraspinatus Supraspinatus Shoulder ABduction 5 5 Axillary Deltoid Shoulder ABduction 5 5 Musculocutaneous Biceps Elbow flexion 5 5 Radial Triceps Elbow extension 5 5 Extensor carpi radialis Wrist extension 5 5 PIN Supinator Supination 5 5 Extensor digitorum Finger extension 5 5 Extensor pollicis brevis/ongus Thumb extension 5 5 Median Flexor carpi radialis Wrist flexion 5 5 Pronator teres Pronation 5 5 Abductor pollicis brevis Thumb ABduction 5 5 Flexor digitorum superficialis Finger flexion PIP 5 5 AIN Flexor pollicis longus Thumb flexion OK 5 5 Ulnar Flexor carpi ulnaris Ulnar wrist flexion 5 5 Flexor digitorum profundus III/IV II, IV flexion PIP 5 5 First dorsal interosseus Index finger ABduction 5 5 Adductor pollicis Thumb aDduction 5 5 Sensory exam: Axillary n. = lateral upper arm / normal Musculocutaneous n. = lateral forarm / normal Radial n./PIN = snuffbox / normal Median n./AIN = palm and digits I, II, III / burning Ulnar n./ medial cutaneous n. of the arm = lateral forarm / normal digits IV & V / normal, no splliting of ring finger Area of sensitivity in the lower palm upper wrist Tinel's sign: Supraclavicular plexus = negative Infraclavicular plexus = negative Cubital tunnel = negative Carpal tunnel = negative Negative Phalen's sign right Labs: None Imaging: None Assessment and Plan: Ms. Echols has new hypersensitivity and pain in the right palm and proximal wrist, following endoscopic carpal tunnel release. This has persisted despite being 3 years out from her initial operation. Her symptoms are bothersome to her, and she would like to investigate options for intervention. I have not been able to review her EMG, I would appreciate if this could be forwarded to us, which she isagreed to do. I would also recommend an MRI of the right wrist to assess the integrity of the nerveand to look for areas of scarring or stenosis. This may help identify an area of residual, recurrent stenosis to treat. Lastly, she may benefit from conservative treatment for symptoms including gabapentin or Lyrica, and/or OT for desensitization of the skin. She was amenable to this plan, and I will place a referral for OT today. I will place an order for the MRI of the right wrist as well, and follow-up with her once the MRI is completed. Plan: 1. MRI right wrist for nerve edema 2. OT for densensitization 3. Follow-up TOV after MRI done Thank you very much for allowing me to participate in the care of this very nice woman. documented in this encounter Plan of Treatment Scheduled Referrals Name Type Priority Associated Diagnoses Order Schedule Referral to Occupational Therapy Outpatient Referral Routine Carpal tunnel syndrome on right Ordered: 11/19/2021 documented as of this encounter Visit Diagnoses Diagnosis Carpal tunnel syndrome on right- Primary Carpal tunnel syndrome documented in this encounter Care Teams Magnetizer Relationship Specialty Start Date End Date Estephania Guzman PA [address] [place] [address] PCP - General Family Medicine 10/12/20 documented as of this encounter
--- OUTSIDE RECORDS SUMMARY | 2023-09-27 15:24 | XMS_ITS | Encounter Summary ---
Author Organization [facility] [place] [address] Care Team Providers Care Loan Reviewer Name Role Phone Estephania Guzman Primary Care Provider +1- [phone] Encounter Details Date Type Department Care Team (Late st Contact Info) Description 11/02/2020 Notes Only [place] [address] Davey Gomez MD [facility] [address] HEMATOLOGY/[place] [address] Social History Tobacco Use Types Packs/Day Years Used Date Smoking Tobacco: Former Cigarettes Q uit: 04/26/2005 Comments Yes Sex and Gender Information Value Date Recorded Sex Assigned at Not on file Gender Identity Not on file Sexual Orientation Not on file documented as of this encounter Progress Notes * Davey Gomez MD - 11/02/2020 7:23 AM EDT I have reviewed the patient's record and given personal and/or family history of cancer she should be seen by genetic counselor. This is scheduled for next week. documented in this encounter Plan of Treatment Not on file documented as of this encounter Visit Diagnoses Not on filedocumented in this encounter Care Teams Loan Reviewer Relationship Specialty Start Date End Date Estephania Guzman PA [address] [place] [address] PCP - General Family Medicine 10/12/20 documented as of this encounter
--- OUTSIDE RECORDS SUMMARY | 2023-09-27 15:24 | XMS_ITS | Clinical Summary ---
Author Organization [facility] [place] [address] Care Team Providers Care Artificial Leather Calender Operator Name Role Phone Estephania Guzman Primary Care Provider +1- [phone] Allergies No known active allergies Medications Medication Sig Dispensed Refills Start Date End Date Status venlafaxine (EFFEXOR-XR) 75 mg Capsule, Sust. Release 24 hr Daily 12/22/2014 Active Vyvanse 30 mg Capsule Take 30 mg by mouth 2 times daily. 10/23/2021 Active Vyvanse 20 mg Capsule Take 1 capsule by mouth daily. 10/23/2021 Active Acetylcysteine 600 mg Capsule 11/01/2021 Active NIFEdipine CC (Adalat CC) 30 mg Tablet Sustained Release Take by mouth. 06/28/2018 Act sandi Active Problems No known active problems Social History Tobacco Use Types Packs/Day Years Used Date Smoking Tobacco: Former Cigarettes Q uit: 04/26/2005 Smokeless Tobacco: Never Alcohol Use Standard Drinks/Week Comments Not Currently 0 (1 standard drink = 0.6 oz pur e alcohol) Sex and Gender Information Value Date Recorded Sex Assigned at Not on file Gender Identity Not on file Sexual Orientation Not on file Last Filed Vital Signs Vital Sign Reading [...] Mass Index 38.32 11/07/2021 2:22 PM EDT Plan of Treatment Health Maintenance Due Date Last Done Comments HIV screen 1998 Hepatitis C Screening 1998 Lipid Screening 1998 Hepatitis B vaccine (0-59 yrs) (1) 07/12/1999 Tdap adult 07/12/1999 Tetanus vaccine 07/12/1999 HPV test 2010 PAP Smear 2010 Breast Cancer Share Decision Needed 2020 Breast Cancer screening 2020 Diabetes Screening (HgbA1C or Glucose) 2020 Covid-19 Vaccine ( - season) 2022 Influenza (Flu) vaccine (1 o f 1 - Influenza standard series) 11/01/2023 Care Teams Artificial Leather Calender Operator Relationship Specialty Start Date End Date Estephania Guzman PA [address] [place] [address] PCP - General Family Medicine 10/12/20
--- NOTE | 2023-09-27 16:30 | DI.CT_ITS ---
Exam(s) CT NECK W EXAM: CT NECK W CLINICAL HISTORY: neck swelling, abscess. TECHNIQUE: Imaging Protocol: Axial computed tomography images with coronal and sagittal reformatted images were created and reviewed CONTRAST MATERIAL: Intravenous: Omnipaque 350 Contrast volume:100 ml contrast COMPARISON: No exams were available for comparison FINDINGS: Parotids: Normal. Submandibular glands: Normal. Thyroid gland: Normal. Lymph nodes: Enlarged right sided lymph node adjacent to the submandibular gland. Consistent with re active lymph node. Carotids arteries: No significant stenosis or dissection. Vertebral arteries: No significant stenosis or dissection. Soft tissues: The floor the mouth is unremarkable. The tonsils and prominent but show no evidence of abscess. Soft tissue swelling over right mandible.. The epiglottis and vocal cords are within normal limits. Lungs: Images through both lung apices are unremarkable. Bones: Degenerative changes of the cervical spine. Visualized portions of the brain and orbits: Unremarkable. Sinuses and mastoids: Clear. IMPRESSION: Findings consistent with tonsillitis and adenoiditis. No evidence of abscess. Right-sided facial swelling without evidence of abscess. RADIATION DOSE DELIVERED: Total DLP DATA REPOSITORY: All CT scans at this facility are submitted to the National Radiology Data Registry (NRDR) Dose Index Registry (DIR) with the [employer] (A[employer]). RADIATION OPTIMIZATION: All CT scans at this facility use at least one of these dose optimization te chniques: automated exposure control; mA and/or kV adjustment per patient size (includes targeted exa ms where dose is matched to clinical indication); or iterative reconstruction.
[2023-09-27] MEDS: Normal Saline - Diluent 50 ML VIAL IJ (16:59)
[2023-09-27] MEDS: Omnipaque 350 MG/ML 100 ML BTL IJ (17:00)
[2023-09-27 17:03] LABS: Abs Immature Grans 0.08 10^3/uL (0.0-0.06); Absolute Basophil Count 0.08 10^3/uL (0.0-0.2); Absolute Eosinophil Count 0.23 10^3/uL (0.0-0.7); Absolute Lymphocyte Count 3.46 10^3/uL (1.2-3.4); Absolute Monocyte Count 1.19 10^3/uL (0.1-0.8); Absolute Neutrophil Count 10.42 10^3/uL (1.2-6.7); Basophils % 0.5 %; Eosinophils % 1.5 %; HCT 45.1 % (36.0-46.0); HGB 14.7 g/dL (11.2-15.7); Immature Grans % 0.5 %; Lymphocytes % 22.4 %; MCHC 32.6 % (32.0-36.0); MCV 95 fL (80-95); MPV 10.8 fL (8.0-11.0); Monocytes % 7.7 %; Neutrophils % 67.4 %; Platelet Count 261 10^3/uL (130-400); RBC 4.74 10^6/uL (3.93-5.22); RDW 11.9 % (11.7-14.6); RDW-SD 41.1 fL; WBC 15.46 10^3/uL (4.4-10.8)
[2023-09-27 17:21] LABS: ALT 21 U/L (14-59); AST 14 U/L (15-37); Albumin 3.6 g/dL (3.4-5.0); Alkaline Phosphatase 86 U/L (46-116); BUN 7 mg/dL (7-18); Bilirubin, Total 0.41 mg/dL (0.2-1.0); CREATININE 0.7 mg/dL (0.55-1.02); Chloride 104 mmol/L (98-107); Estimated GFR 109.98 (mL/min/1.73m2); Glucose 82 mg/dL (74-106); HCG Qual (Serum) Negative; Potassium 3.8 mmol/L (3.5-5.1); Sodium 140 mmol/L (136-145); Total Protein 7.5 g/dL (6.4-8.2)
[2023-09-27] MEDS: LORazepam 2 MG/ML VIAL 0.5 MG IVP (18:17)
[2023-09-27] MEDS: AMPICILLIN/SULBACTAM 3 GM in Normal Saline 100 ML IVPB ×2 (18:17→23:28)
[2023-09-27] MEDS: Dexamethasone 10 MG/ML VIAL IVP (18:17)
[2023-09-27] MEDS: Normal Saline 1,000 ML 1000 ML IV (18:18)
--- NOTE | 2023-09-27 18:36 | DI.VRAD_ITS ---
PROCEDURE INFORMATION: Exam: CT Neck With Contrast Exam date and time: 09/27/2023 5:01 PM Age: 43 years old Clinical indication: Other: Neck swelling, abscess TECHNIQUE: Imaging protocol: Computed tomography of the neck with contrast. Radiation optimization: All CT scans at this facility use at least one of these dose optimization techniques: automated exposure control; mA and/or kV adjustment per patient size (includes targeted exams where dose is matched to clinical indication); or iterative reconstruction. Contrast material: OMNI 350; Contrast volume: 100 ml; Contrast route: INTRAVENOUS (IV); COMPARISON: No relevant prior studies available. FINDINGS: Salivary glands: Normal. Glands are normal in size. Pharynx: The adenoidal tissues are prominent. The tonsils are slightly prominent. No evidence for abscess. Prevertebral and retropharyngeal spaces: Unremarkable. Larynx: Unremarkable. Epiglottis is normal. Thyroid: Normal. No enlarged or calcified nodules. Trachea: Visualized trachea is unremarkable. Lungs: Unremarkable as visualized. Lymph nodes: There is lymphoid hyperplasia at the tongue base. Bones/joints: Unremarkable. No acute fracture. Soft tissues: Unremarkable. No significant soft tissue swelling. IMPRESSION: Adenoiditis, tonsillitis and pharyngitis. No evidence for abscess. Dictated and Authenticated by: Tram Bennett MD. Ordering:RAMU Layne MD
--- NOTE | 2023-09-27 19:19 | NUR.NOTE ---
Nursing Note: Assumed care of pt. Report from RYAN Delarosa. Pt a/o x 4. Pt ambulated to bathroom. Updated pt and friend of the care plan and answered their questions.
--- NOTE | 2023-09-27 23:13 | ED.GENADUL_ITS ---
Discharge Plan Discharge Details Chief Complaint: Recheck Primary Care Provider: Estephania Guzman ED Provider: Xi Graff Home Meds and New Rx's Prescriptions: No Action venlafaxine [Effexor XR] 75 MG capsule,extended release 24hr 75 mg PO DAILY Qty: 1 Mirena 20 mcg/24 hours (7 yrs) 52 mg intrauterine device 1 insert intrauterine ONCE Rx Instructions: as a single dose lisdexamfetamine 20 mg capsule 20 mg PO DAILY NAC 600 mg tablet 600 mg PO BID Patient Comments: STATES SHE ONLY TAKES THIS DAILY BECAUSE SHE FORGETS SECOND DOSE lorazepam [Ativan] 0.5 mg tablet 0.5 mg PO DAILY PRN amoxicillin-pot clavulanate 875-125 mg tablet 1 tab PO Q12H 7 Days Qty: 14 0RF lisdexamfetamine [Vyvanse] 30 mg Capsule 30 mg PO BID nifedipine 30 mg Tablet Extended Release 30 mg PO DAILY HPI General Date/Time Provider Initiated Documentation: 09/27/23 16:25 . HPI Narrative: This 43-year-old female presents with report dental pain which started on Thursday. On Thursday morning and was evaluated and was started on amoxicillin. Has been taking Tylenol and ibuprofen for discomfort and antibiotic as prescribed. Presents today secondary to inability to open her jaw, pain with swallowing, and redness and swelling spreading down her neck. She states this became dramatically worse this morning. Related Data Home Medications ?Medication ?Instructions ?Recorded ?Confirmed venlafaxine 75 mg capsule,extended 75 mg PO DAILY ##1 12/22/14 09/27/23 release 24 hr (Effexor XR) lisdexamfetamine 30 mg capsule 30 mg PO BID 06/28/18 09/27/23 (Vyvanse) nifedipine 30 mg tablet,extended 30 mg PO DAILY 06/28/18 09/27/23 release levonorgestrel 21 mcg/24 hr (up to 1 insert intrauterine ONCE 05/08/21 09/27/23 8 years) 52 mg intrauterine device (Mirena) lisdexamfetamine 20 mg capsule 20 mg PO DAILY 05/08/21 09/27/23 acetylcysteine 600 mg tablet (NAC) 600 mg PO BID 07/30/21 09/27/23 lorazepam 0.5 mg tablet (Ativan) 0.5 mg PO DAILY PRN 08/27/21 09/27/23 amoxicillin 875 mg-potassium 1 tab PO Q12H 7 days #14 tabs 09/25/23 09/27/23 clavulanate 125 mg tablet Previous Rx's ?Medication ?Instructions ?Recorded amoxicillin 875 mg-potassium 1 tab PO Q12H 7 days #14 tabs 09/25/23 clavulanate 125 mg tablet Allergies Allergy/AdvReac Type Severity Reaction Status Date / Time clindamycin AdvReac Severe Itching Verified 09/27/23 15:27 General Stated Complaint: Recheck ANGELLA: 4 Exam Narrative Exam Narrative: This 43-year-old female presents with report of swelling to right trauma, uvula midline, abscess fluctuant mildly to #32, no soft palate induration, maintaining secretions, erythema noted overlying anterior throat. No submandibular lymphadenopathy. Course Vital Signs Vital signs: Vital Signs Temperature 36.9 C 09/27/23 15:24 Pulse 88 09/27/23 15:24 Respiratory Rate 18 09/27/23 15:24 Blood Pressure 158/92 H 09/27/23 15:24 Pulse Oximetry 99 09/27/23 15:24 Temperature 36.9 C 09/27/23 19:18 Temperature Source Oral 09/27/23 19:18 Pulse 78 09/27/23 21:45 Pulse 71 09/27/23 18:40 Respiratory Rate 12 09/27/23 21:45 Respiratory Effort Normal, Non-Labored 09/27/23 15:28 Blood Pressure 121/71 09/27/23 21:45 Blood Pressure Position Sitting 09/27/23 15:24 Pulse Oximetry 95 09/27/23 21:45 Oxygen Delivery Method Room Air 09/27/23 21:45 Oxygen Flow Rate 0 09/27/23 21:45 Pain Level 5 09/27/23 19:18 Comment Pt states she is comfortable as long as she does not move. 09/27/23 21:45 Lab/Test Results Lab/Test Results: Laboratory Tests Range/Units 09/27/23 16:45 WBC (4.4-10.8) 10^3/uL 15.46 H RBC (3.93-5.22) 10^6/uL 4.74 Hgb (11.2-15.7) g/dL 14.7 Hct (36.0-46.0) % 45.1 MCV (80-95) fL 95 MCH (27.0-33.0) pg 31.0 MCHC (32.0-36.0) % 32.6 RDW (11.7-14.6) % 11.9 Plt Count (130-400) 10^3/uL 261 MPV (8.0-11.0) fL 10.8 Immature Gran % % 0.5 Neutrophils % % 67.4 Lymphocytes % % 22.4 Monocytes % % 7.7 Eosinophils % % 1.5 Basophils % % 0.5 Nucleated RBC % (0.0-0.3) % 0.0 Absolute Neutrophils (1.2-6.7) 10^3/uL 10.42 H Absolute Lymphocytes (1.2-3.4) 10^3/uL 3.46 H Absolute Monocytes (0.1-0.8) 10^3/uL 1.19 H Absolute Eosinophils (0.0-0.7) 10^3/uL 0.23 Absolute Basophils (0.0-0.2) 10^3/uL 0.08 Sodium (136-145) mmol/L 140 Potassium (3.5-5.1) mmol/L 3.8 Chloride (98-107) mmol/L 104 Carbon Dioxide (21.0-32.0) mmol/L 26.0 Anion Gap (3-11) mmol/L 10.0 BUN (7-18) mg/dL 7 Creatinine (0.55-1.02) mg/dL 0.7 Est GFR (CKD-EPI 2020) (mL/min/1.73m2) 109.98 Glucose (74-106) mg/dL 82 Calcium (8.5-10.1) mg/dL 9.0 Total Bilirubin (0.2-1.0) mg/dL 0.41 AST (15-37) U/L 14 L ALT (14-59) U/L 21 Alkaline Phosphatase (46-116) U/L 86 Total Protein (6.4-8.2) g/dL 7.5 Albumin (3.4-5.0) g/dL 3.6 Serum HCG, Qual Negative Medical Decision Making 43-year-old female presents with report of dental abscess and swelling with extension down her neck. Uvula midline, oropharynx patent. Maintaining secretions and airway. Secondary to concern with facial and mild swelling to the lateral side of patient's anterior throat, I did order CT neck with contrast. There is no visualized abscess on the CT neck with contrast per virtual radiology interpretation. Clinically patient has a dental abscess with concern for significant worsening of symptoms in the past 24 hours. Patient is actually improving after Zosyn administration x 2 and IV steroids. Trismus is improved mildly. I have called every tertiary and larger facility in the area that might have capacity to manage and oral surgery patient in [place], [place], in [place]. Every hospital has been at capacity. Tested say they are able to list for tomorrow regarding this patient, potentially. At this time, I have a call pending from [facility], 2330. I did speak last with the transfer line at 2230. Patient has remained on telemetry monitoring, she is maintaining her airway and if anything has mildly improved with her symptoms. [facility] declines secondary to ENT refusal and lack of oral surgery, [facility] declined secondary to oral surgery availability. [facility] declined secondary to lack of oral surgery capacity, [facility], [facility], [facility], [facility], [facility], [facility] did state to call at 10:00 in the morning as they may have capacity to accept patient at that time but do not have capacity to list the patient. Test has a dental school and this would be the most appropriate transfer at this time. Pending acceptance to a facility capable of performing dental extractions. I have spent approximately 90 minutes of time attempting to transfer this patient to a facility capable of managing this patient. Quality:SDOH Health Related Social Needs: No Data to Display PFSH All Active Problems Elevated blood pressure reading (Acute) Abscess, dental (Acute) Lipoma (Acute) Tobacco use (Acute) Medical History (Updated 09/25/23 @ 08:48 by Ernst Polo NP) Hypertension Binge eating disorder Family history of breast cancer Dysuria Left carpal tunnel syndrome PTSD (post-traumatic stress disorder) Encounter for IUD insertion Anxiety Reports well controlled on venlafaxine Depression Reports well controlled on venlafaxine Attention deficit disorder (ADD) in adult Borderline hypertension Raynaud disease Right carpal tunnel syndrome Bilateral carpal tunnel syndrome Chronic hypertension during , antepartum (06/01/15) Encounter for supervision of normal in multigravida (12/27/14) Gestational diabetes mellitus (GDM) treated with oral hypoglycemic therapy (06/26/15) 06/08/15 Glucophage 500mg @ bedtime 06/19/15 Glucophage increased to 1000mg @ bedtime 06/26/15 Glucophage increased to 1500mg at bedtime. 07/06/15 Glucophage increased to 2000mg at bedtime. Numbness and tingling in both hands (06/22/15) Obesity affecting in third trimester (06/01/15) BMI 46. Surgical History (Updated 05/08/21 @ 10:55 by Richar Perez RN) History of carpal tunnel surgery of right wrist S/P foot surgery, right skin removal Pilonidal cyst Tonsillectomy and adenoidectomy Family History (Updated 11/21/20 @ 09:21 by Fabiana Panda MD) Mother Essential hypertension 30 Hyperlipidemia Mental disorder Father Alcohol abuse Essential hypertension 30 Heart disease Hyperlipidemia 33 Myocardial infarction Stroke Breast cancer Brother Essential hypertension 30 Brother Essential hypertension 30 Paternal Grandmother Breast cancer Social History (Updated 11/21/20 @ 09:24 by Fabiana Panda MD) Smoking/Tobacco Use Status: Former Tobacco Use Quit Date: 03/02/05 Smoking risk assessment performed?: Yes Alcohol Intake: current Alcohol Intake frequency: holidays/special occasions only Drug use: Never Substance use type: does not use Household members: significant other and children Housing: house Number of Children: 3 Pets and animals: Yes Pets and animals: cat(s) and dog(s) Sexually active: Yes What type of physical activity do you participate in: walking Special yulisa needs: No Do you feel safe at home: Yes Do you feel safe in your relationship?: Yes Victim of physical abuse: No Victim of emotional abuse: No Victim of sexual abuse: No Female Reproductive History Menstrual Age of Menarche: 16 control method: progestin IUCD History History 3 Para 3 Hx # Term Pregnancies 2 Multiple births Hx # Pregnancies 1 Ectopic pregnancies AB induced Hx Number of Living Children 3 AB spontaneous Past Pregnancies Del. Date GA/Weeks # Preg Succ Route Wgt Sex Labor Lgth Anesth esia Location Prov Compl 08/01/06 vaginal 2267.962 g Male [facility] 12/15/09 vaginal 2267.962 g Male [facility] 07/20/15 vaginal 3855.535 g Female [facility] Sign Out Sign Out Data: Sign Out Comment: pending acceptance for transfer for oral surgery Last updated by Xi Graff PA at 09/28/23 00:02
[2023-09-28 04:15] VITALS: BP 114/57; PULSE 63; RESP 16; TEMP 36.4; O2SAT 96
[2023-09-28] MEDS: AMPICILLIN/SULBACTAM 3 GM in Normal Saline 100 ML IVPB (06:19)
--- NOTE | 2023-09-28 07:04 | W.EDPROG ---
Date of service: 09/28/23 Time of Service: 07:04 Medical Decision Making Patient was signed out to me by my colleague Xi Graff. Please refer to HPI physical exam assessment and plan. At time of signout we are awaiting morning reassessment and potential urgent/emergent dental options versus transfer options. Throughout the night [facility] called us back and said that they do not have any opportunity or availability for transfer. [facility], [facility] also refused transfer. Throughout the night after Toradol steroids and 3 doses of appropriately timed antibiotic the patient is feeling somewhat better. She still does have mild trismus particularly on the right, on my exam I feel no palpable abscess in the jaw, periapical area or the neck. There does not appear to be any new or significant erythema in the neck area at this time. No evidence of Ludewig's angina. Patient is able to drink well without difficulty. Patient remains hemodynamically stable. Patient does not feel comfortable going home at this stage. We do not have any beds available for admission here currently. We will reach out to dental offices and ENT at 8 AM when they open to determine potential for urgent tooth removal. Quality:[facility] Health Related Social Needs: No Data to Display Sign Out Sign Out Data: Sign Out Comment: pending acceptance for transfer for oral surgery Last updated by Xi Graff PA at 09/28/23 00:02 Sign Out Comment: Stable throughout the night, trismus continues. Antibiotics given. Pending callback from local oral surgeons. Last updated by Sebastian Tovar DO at 09/28/23 08:06 Discharge Plan Disposition Patient Disposition: Home Condition: Stable Discharge Details Clinical Impression: Abscess, dental Primary Care Provider: Estephania Guzman ED Provider: Kedar Cai Home Meds and New Rx's Prescriptions: Continued venlafaxine [Effexor XR] 75 MG capsule,extended release 24hr 75 mg PO DAILY Qty: 1 Mirena 20 mcg/24 hours (7 yrs) 52 mg intrauterine device 1 insert intrauterine ONCE Rx Instructions: as a single dose lisdexamfetamine 20 mg capsule 20 mg PO DAILY NAC 600 mg tablet 600 mg PO BID Patient Comments: STATES SHE ONLY TAKES THIS DAILY BECAUSE SHE FORGETS SECOND DOSE lorazepam [Ativan] 0.5 mg tablet 0.5 mg PO DAILY PRN amoxicillin-pot clavulanate 875-125 mg tablet 1 tab PO Q12H 7 Days Qty: 14 0RF lisdexamfetamine [Vyvanse] 30 mg Capsule 30 mg PO BID nifedipine 30 mg Tablet Extended Release 30 mg PO DAILY Discharge Instructions Additional Instructions: Follow-up with the oral surgeon as scheduled If you feel more ill or feel like you are suffering from emergent medical process return to the emergency department for reevaluation. Discharge Data Discharge Date/Time-TO BE ENTERED AT DEPARTURE: 09/28/23 09:42
[2023-09-28 07:44] VITALS: BP 116/60; PULSE 66; RESP 16; TEMP 36.2; O2SAT 98
[2023-09-28 07:45] LABS: Abs Immature Grans 0.07 10^3/uL (0.0-0.06); Absolute Basophil Count 0.03 10^3/uL (0.0-0.2); Absolute Lymphocyte Count 1.52 10^3/uL (1.2-3.4); Absolute Monocyte Count 0.66 10^3/uL (0.1-0.8); Absolute Neutrophil Count 11.68 10^3/uL (1.2-6.7); Basophils % 0.2 %; Immature Grans % 0.5 %; Lymphocytes % 10.9 %; MCH 31.2 pg (27.0-33.0); MCHC 33.3 % (32.0-36.0); MCV 94 fL (80-95); MPV 10.5 fL (8.0-11.0); Monocytes % 4.7 %; Neutrophils % 83.7 %; Platelet Count 259 10^3/uL (130-400); RBC 4.49 10^6/uL (3.93-5.22); RDW 11.6 % (11.7-14.6); RDW-SD 40.1 fL; WBC 13.96 10^3/uL (4.4-10.8)
[2023-09-28] MEDS: ACETAMINOPHEN 1,000 MG/100 ML BTL 400 MG IVPB (09:10)
--- NOTE | 2023-09-28 09:21 | W.EDPROG ---
Date of service: 09/28/23 Time of Service: 09:22 Medical Decision Making Patient signed out to me pending calls to the local oral surgery offices, there is an oral surgeon in [facility] that would be willing to see her today. She is no longer having any trismus and full range of motion of her neck so do feel hospitalization is indicated. She is stable for discharge. Advised to follow-up with the oral surgeon and return precautions given Quality:SDOH Health Related Social Needs: No Data to Display Sign Out Sign Out Data: Sign Out Comment: pending acceptance for transfer for oral surgery Last updated by Xi Graff PA at 09/28/23 00:02 Sign Out Comment: Stable throughout the night, trismus continues. Antibiotics given. Pending callback from local oral surgeons. Last updated by Sebastian Tovar DO at 09/28/23 08:06 Discharge Plan Disposition Patient Disposition: Home Condition: Stable Discharge Details Clinical Impression: Abscess, dental Primary Care Provider: Estephania Guzman ED Provider: Kedar Cai [place] Meds and New Rx's Prescriptions: Continued venlafaxine [Effexor XR] 75 MG capsule,extended release 24hr 75 mg PO DAILY Qty: 1 Mirena 20 mcg/24 hours (7 yrs) 52 mg intrauterine device 1 insert intrauterine ONCE Rx Instructions: as a single dose lisdexamfetamine 20 mg capsule 20 mg PO DAILY NAC 600 mg tablet 600 mg PO BID Patient Comments: STATES SHE ONLY TAKES THIS DAILY BECAUSE SHE FORGETS SECOND DOSE lorazepam [Ativan] 0.5 mg tablet 0.5 mg PO DAILY PRN amoxicillin-pot clavulanate 875-125 mg tablet 1 tab PO Q12H 7 Days Qty: 14 0RF lisdexamfetamine [Vyvanse] 30 mg Capsule 30 mg PO BID nifedipine 30 mg Tablet Extended Release 30 mg PO DAILY Discharge Instructions Additional Instructions: Follow-up with the oral surgeon as scheduled If you feel more ill or feel like you are suffering from emergent medical process return to the emergency department for reevaluation. Discharge Data Discharge Date/Time-TO BE ENTERED AT DEPARTURE: 09/28/23 09:42
--- NOTE | 2023-09-28 09:36 | NUR.NOTE ---
Patient accepted to [facility]; [address]; [address], [place], [place]; [phone]. Appt @ 11am today. Notes, labs, CT report, demographics and referral (scanned into chart) faxed to this office. Nursing Note:
[2023-09-28 09:40] VITALS: BP 155/104; PULSE 67; RESP 18; O2SAT 100
== END 2023-09-28 09:42 | disposition home or self-care (01) ==
PROVIDERS: Physician Assistant; Student in an Organized Health Care Education/Training Program; Emergency Provider Emergency Medicine; PCP Physician Assistant Medical
DX: K04.7 Periapical abscess without sinus; K08.89 Other specified disorders of teeth and supporting structures; I10 Essential (primary) hypertension; Z87.891 Personal history of nicotine dependence
CPT/HCPCS: 00123; 36415; 70491; 80053; 84145; 96365; 96366; 96367; 96375; 99285; 83605; 84703; 85025; 99284; J0131; J0295; J1100; J2060; J3490

== ENCOUNTER 2023-10-13 14:02 | Emergency (ER) | payer MEDICAID, SELFPAY ==
[2023-10-13 14:07] VITALS: BP 148/124; PULSE 106; RESP 18; TEMP 37.1; O2SAT 96
[2023-10-13 14:26] VITALS: BP 162/139; PULSE 119; RESP 20; TEMP 36.2; O2SAT 98
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
[2023-10-13 15:15] LABS: Lactate 0.9 mmol/L (0.6-1.4)
[2023-10-13 15:19] LABS: Abs Immature Grans 0.04 10^3/uL (0.0-0.06); Absolute Basophil Count 0.12 10^3/uL (0.0-0.2); Absolute Eosinophil Count 0.28 10^3/uL (0.0-0.7); Absolute Lymphocyte Count 2.31 10^3/uL (1.2-3.4); Absolute Monocyte Count 0.94 10^3/uL (0.1-0.8); Absolute Neutrophil Count 6.66 10^3/uL (1.2-6.7); Basophils % 1.2 %; Eosinophils % 2.7 %; HCT 48.1 % (36.0-46.0); HGB 16.5 g/dL (11.2-15.7); Immature Grans % 0.4 %; Lymphocytes % 22.3 %; MCH 31.4 pg (27.0-33.0); MCHC 34.3 % (32.0-36.0); MCV 91 fL (80-95); MPV 9.9 fL (8.0-11.0); Monocytes % 9.1 %; Neutrophils % 64.3 %; Platelet Count 268 10^3/uL (130-400); RBC 5.26 10^6/uL (3.93-5.22); RDW 11.4 % (11.7-14.6); RDW-SD 38.5 fL; WBC 10.35 10^3/uL (4.4-10.8)
[2023-10-13 15:20] LABS: ESR 14 mm/hr (0-20)
[2023-10-13] MEDS: Normal Saline 1,000 ML 1000 ML IV (15:28)
[2023-10-13 15:40] LABS: ALT 21 U/L (14-59); AST 13 U/L (15-37); Albumin 4.2 g/dL (3.4-5.0); Alkaline Phosphatase 87 U/L (46-116); Anion Gap 12.2 mmol/L (3-11); BUN 11 mg/dL (7-18); Bilirubin, Direct 0.2 mg/dL (0.0-0.2); Bilirubin, Total 0.74 mg/dL (0.2-1.0); CO2 23.8 mmol/L (21.0-32.0); CREATININE 0.7 mg/dL (0.55-1.02); Chloride 101 mmol/L (98-107); Estimated GFR 109.98 (mL/min/1.73m2); Glucose 109 mg/dL (74-106); Lipase 31 U/L (16-77); Potassium 4.2 mmol/L (3.5-5.1); Sodium 137 mmol/L (136-145)
[2023-10-13 15:41] LABS: C-Reactive Protein < 0.50 mg/dL (<or=0.5)
[2023-10-13 15:48] LABS: Procalcitonin < 0.1 ng/mL
[2023-10-13 15:59] LABS: Bilirubin Negative (Negative); Blood Negative (Negative); Clarity Clear (Clear); Glucose Negative (Negative); Ketones Negative (Negative); Leukocyte Esterase Negative (Negative); Nitrite Negative (Negative); Specific Gravity <= 1.005 (1.005-1.025); Urobilinogen 0.2 mg/dL (Up to 0.2); pH 5.5 (5-8)
[2023-10-13 16:06] LABS: Calcium 9.2 mg/dL (8.5-10.1)
--- NOTE | 2023-10-13 16:12 | W.EDPROG ---
Date of service: 10/13/23 Time of Service: 16:12 Medical Decision Making Care assumed from provider (EDOUARD Ball) Please see their initial HPI, PE, and documentation. Discussed patient details and case and pending workup and disposition. Patient is hemodynamically stable, and alert and oriented. At the time of signout awaiting labs and disposition. No leukocytosis hemoglobin 16.5 hematocrit 48.1, lactate 0.9 CMP largely within normal limits anion gap slightly elevated 12.2 glucose 109 procalcitonin less than 0.1 lipase within normal limits. No evidence of UTI on urinalysis. Tick and Lyme is pending at this time. Patient has received a liter of fluid and acyclovir IV. Patient discharged with Valacyclovir 1 gm PO BID x 7 days and lidocaine patches. Remained hemodynamically stable throughout remainder of stay. Vital signs improved. This text was generated using Performable dictation system, please disregard any oddities of phrase or misspellings. Lab Data Lab results reviewed: Yes I reviewed the patient's lab results. Labs: 10/13/23 15:19 Blood Blood Culture - Pending 10/13/23 15:04 Blood Blood Culture - Pending Laboratory Tests Range/Units 10/13/23 10/13/23 14:55 15:04 WBC (4.4-10.8) 10^3/uL 10.35 RBC (3.93-5.22) 10^6/uL 5.26 H Hgb (11.2-15.7) g/dL 16.5 H Hct (36.0-46.0) % 48.1 H MCV (80-95) fL 91 MCH (27.0-33.0) pg 31.4 MCHC (32.0-36.0) % 34.3 RDW (11.7-14.6) % 11.4 L Plt Count (130-400) 10^3/uL 268 MPV (8.0-11.0) fL 9.9 Immature Gran % % 0.4 Neutrophils % % 64.3 Lymphocytes % % 22.3 Monocytes % % 9.1 Eosinophils % % 2.7 Basophils % % 1.2 Nucleated RBC % (0.0-0.3) % 0.0 Absolute Neutrophils (1.2-6.7) 10^3/uL 6.66 Absolute Lymphocytes (1.2-3.4) 10^3/uL 2.31 Absolute Monocytes (0.1-0.8) 10^3/uL 0.94 H Absolute Eosinophils (0.0-0.7) 10^3/uL 0.28 Absolute Basophils (0.0-0.2) 10^3/uL 0.12 ESR (0-20) mm/hr 14 VBG Lactate (0.6-1.4) mmol/L 0.9 Sodium (136-145) mmol/L 137 Potassium (3.5-5.1) mmol/L 4.2 Chloride (98-107) mmol/L 101 Carbon Dioxide (21.0-32.0) mmol/L 23.8 Anion Gap (3-11) mmol/L 12.2 H BUN (7-18) mg/dL 11 Creatinine (0.55-1.02) mg/dL 0.7 Est GFR (CKD-EPI 2020) (mL/min/1.73m2) 109.98 Glucose (74-106) mg/dL 109 H Calcium (8.5-10.1) mg/dL 9.2 Total Bilirubin (0.2-1.0) mg/dL 0.74 Conjugated Bilirubin (0.0-0.2) mg/dL 0.2 AST (15-37) U/L 13 L ALT (14-59) U/L 21 Alkaline Phosphatase (46-116) U/L 87 C-Reactive Protein (<or=0.5) mg/dL < 0.50 Total Protein (6.4-8.2) g/dL 8.0 Albumin (3.4-5.0) g/dL 4.2 Lipase (16-77) U/L 31 Procalcitonin ng/mL < 0.1 Urine Color (Yellow) Yellow Urine Clarity (Clear) Clear Urine pH (5-8) 5.5 Ur Specific [place] (1.005-1.025) <= 1.005 Urine Protein (Neg-Trace) mg/dL Negative Urine Ketones (Negative) mg/dL Negative Urine Blood (Negative) Negative Urine Nitrite (Negative) Negative Urine Bilirubin (Negative) Negative Urine Urobilinogen (Up to 0.2) mg/dL 0.2 Ur Leukocyte Esterase (Negative) Negative Urine Glucose (Negative) mg/dL Negative Quality:SDOH Health Related Social Needs: No Data to Display Sign Out Sign Out Data: Sign Out Comment: Patient awaiting labs - if neg for renal/sepsis etc can go home on valtrex for shingles Last updated by Sebastian Julian PA at 10/13/23 15:41 Discharge Plan Disposition Patient Disposition: Home Condition: Stable Discharge Details Clinical Impression: Shingles Primary Care Provider: Estephania Guzman ED Provider: Stephanie Greenwood Home Meds and New Rx's Prescriptions: New valacyclovir 1 gram tablet 1,000 mg PO TID 7 Days Qty: 21 0RF Rx Instructions: Take 1 tablet 3 times daily for the next 7 days lidocaine 5 % adhesive patch,medicated 1 patch topical DAILY Qty: 15 0RF Rx Instructions: leave on most painful area for up to 12 hrs No Action venlafaxine [Effexor XR] 75 MG capsule,extended release 24hr 75 mg PO DAILY Qty: 1 Mirena 20 mcg/24 hours (7 yrs) 52 mg intrauterine device 1 insert intrauterine ONCE Rx Instructions: as a single dose lisdexamfetamine 20 mg capsule 20 mg PO DAILY NAC 600 mg tablet 600 mg PO BID Patient Comments: STATES SHE ONLY TAKES THIS DAILY BECAUSE SHE FORGETS SECOND DOSE lorazepam [Ativan] 0.5 mg tablet 0.5 mg PO DAILY PRN lisdexamfetamine [Vyvanse] 30 mg Capsule 30 mg PO BID nifedipine 30 mg Tablet Extended Release 30 mg PO DAILY Discharge Instructions Instructions: Shingles Additional Instructions: Please take the anti-viral medication as directed. Take three times daily x 7 days. Use the lidocaine patches as directed. Follow up with primary care provider in 5-7 days. Return to ED sooner if any worsening or concerns. No evidence of urinary tract infection, evidence of kidney stone. Please take Tylenol or Ibuprofen with food every 4-6 hours as needed for pain and swelling. Stand Alone Forms: Work Release Referrals: Estephania Guzman PA [Primary Care Provider] - 5 days
[2023-10-13 16:39] VITALS: BP 128/72; PULSE 61; RESP 20; TEMP 37; O2SAT 99
[2023-10-13 17:12] VITALS: BP 123/87; PULSE 76; RESP 20; O2SAT 97
[2023-10-14 10:25] LABS: Lyme Ab w Rflx to Lyme Confirm Negative (Negative)
[2023-10-17 00:58] LABS: Anaplasma phagocytophilum Negative (Negative); B. miyamotoi PCR Negative (Negative); Babesia divergens/MO-1 Negative (Negative); Babesia duncani Negative (Negative); Babesia microti Negative (Negative); Ehrlichia chaffeensis Negative (Negative); Ehrlichia ewingii/canis Negative (Negative); Ehrlichia muris eauclairensis Negative (Negative)
== END 2023-10-13 17:23 | disposition home or self-care (01) ==
PROVIDERS: Physician Assistant; Emergency Provider Registered Nurse Emergency; PCP Physician Assistant Medical
DX: B02.9 Zoster without complications (principal); R10.9 Unspecified abdominal pain; Z98.818 Other dental procedure status; Z63.4 Disappearance and death of family member
CPT/HCPCS: 00123; 80048; 80076; 83690; 84145; 85652; 87040; 87798; 96365; 96366; 99284; 81003; 83605; 85025; 86140; 86618; J0133

== ENCOUNTER 2023-10-16 00:23 | Outpatient (CLI) | payer MEDICAID, SELFPAY ==
--- NOTE | 2023-10-16 08:30 | DI.MAMMO_ITS ---
Exam(s) MAMMO SCREENING EXAM: MAMMO SCREENING CLINICAL HISTORY: SCREENING,Z12.31 TECHNIQUE: Bilateral full field digital CC and MLO mammographic images were obtained with 3D tomosyn thesis and utilizing computer aided detection (CAD). COMPARISON: Available for comparison. FINDINGS: Masses/Architectural Distortion: None seen. Microcalcifications: No suspicious pleomorphic-type are seen. Skin Thickening/Nipple Retraction: None. IMPRESSION: 1. No significant interval change with no specific features of malignancy noted. 2. Unless there is more urgent need, screening mammography is recommended, as per [place] [employer] guidelines. BI-RADS Category 1 - Negative Breast Density - Category C - Heterogeneously dense Breast density category C or D implies that the patient has dense breast tissue. Dense breast tissue is very common and is not abnormal but dense breast tissue can make it harder to find cancer on a ma mmogram. Also, dense breast tissue may increase their breast cancer risk. This information about the result of the mammogram report was provided to the patient to raise their awareness. Use this report when you speak with the patient about their risks for breast cancer, which includes their family hist ory. At that time, you may recommend for more screening tests (Ultrasound or MRI) as they might be us eful based on their risk. A negative radiographic report should not delay biopsy if a dominant or clinically suspicious mass is present. Up to ten percent of cancers are not identified on mammography. A negative report may reinforce clinical impression. Adenosis and dense breasts may obscure an underlying neoplasm. False positive reports average 6 to 10%. Patient will receive a letter notifying them of these results.
== END 2023-10-16 00:43 ==
LOC: DI 00:23
PROVIDERS: PCP Physician Assistant Medical; Visit Provider Physician Assistant Medical
DX: Z12.31 Encounter for screening mammogram for malignant neoplasm of breast (principal)
CPT/HCPCS: 77063; 77067

== ENCOUNTER 2023-11-17 19:30 | Outpatient (REF) | payer MEDICAID, SELFPAY ==
[2023-11-17 16:58] LABS: Calculated LDL 118 mg/dL (<100); Cholesterol 201 mg/dL (<200); HDL Cholesterol 77 mg/dL (40-60); Triglyceride 32 mg/dL (<150); Vitamin D 25 Total 28.4 ng/mL (30-100)
== END 2023-11-17 19:31 | disposition home or self-care (01) ==
LOC: NCHCN 19:30
PROVIDERS: PCP Physician Assistant Medical; Visit Provider Physician Assistant Medical
DX: F41.8 Other specified anxiety disorders (principal); I10 Essential (primary) hypertension
CPT/HCPCS: 80061; 82306